=== PATIENT | male | born 1945 | race Caucasian/White ===

== ENCOUNTER 2017-01-27 08:09 | Observation (INO) | payer MEDICARE, BC ==
--- OUTSIDE RECORDS SUMMARY | 2017-01-27 08:11 | XMS | Clinical Summary ---
:1945 Author Organization [facility] Address [address] [place] [address] Phone Care Team Providers Name Role Phone , Primary Care Provider Unavailable Allergies Not on File Current Medications Not on file Active Problems Not on file Social History Tobacco Use Types Packs/Day Years Used Date Never Assessed Sex Assigned at Date Recorded Not on file Last Filed Vital Signs Not on file Plan of Treatment Not on file Results Not on filefrom Last 3 Months
[2017-01-27 09:12] LABS: #Eosinphils 0.3 thou/uL (0.0-0.7); #Lymphocytes 1.2 thou/uL (1.20-3.40); #Monocytes 0.5 thou/uL (0.11-0.59); #Neutrophils 5.6 thou/uL (1.40-6.50); %Basophils 0.5 % (0.0-1.0); %Eosinophils 4.4 % (0.0-10.0); %Lymphocytes 15.5 % (21.0-51.0); %Monocytes 6.1 % (0.0-10.0); Hematocrit 41.9 % (42.0-52.0); Mean Platelet Volume 7.6 fL (7.4-10.4); Red Blood Cell (RBC) Count 4.52 mill/uL (4.70-6.10); White Blood Cell (WBC) Count 7.6 thou/uL (4.8-10.8)
[2017-01-27 09:18] LABS: PTT 37.8 SEC (22.9-36.1)
[2017-01-27 09:37] LABS: ALT (SGPT) 19 U/L (8-55); AST (SGOT) 18 U/L (5-34); Alkaline Phosphatase 29 U/L (40-150); Anion Gap 12 mmol/L (10-20); BUN (Urea Nitrogen) 37 mg/dL (8.4-25.7); Bilirubin, Total 0.4 mg/dL (0.2-1.2); Calc. Creatinine Clearance 0 mL/min (70-130); Calcium 9.3 mg/dL (7.8-10.44); Carbon Dioxide 32 mmol/L (23-31); Chloride 104 mmol/L (98-107); Estimated GFR-MDRD 35; Globulin 2.9 g/dL (2.4-3.5); Protein, Total 6.6 g/dL (5.8-8.1)
--- NOTE | 2017-01-27 12:04 | HP ---
PRIMARY CARE PHYSICIAN: Debra Briones M.D. REASON FOR ADMISSION: Lower GI bleed. HISTORY OF PRESENT ILLNESS: A 71-year-old male who has underlying history of chronic atrial fibrillation on chronic anticoagulation therapy with warfarin, who came to emergency room for bright red blood per rectum which was started this morning around 6 a.m. The patient reports that it was pretty much large amount of blood in his toilet when he had restroom this morning. He did not have any pain. He did not have any fever. He does not have any antibiotic exposure. He waited for another hour and he had another large bowel movement which was only bright red blood per rectum. He was concerned about it and decided to come to the emergency room for evaluation. After coming to the emergency room, he had 2 episodes of rectal bleed. Patient reports that on , patient had colonoscopy, it was done by Dr. Drake. At the same time, the patient also had upper endoscopy. Patient was kept off on warfarin therapy 5 days prior to procedure and 3 days after procedure, he started back on warfarin on 01/14/2017 and subsequently patient also had a couple of days ago PT /INR checked which was 1.9. Patient reports that with last colonoscopy, they removed several polyps, one was which pretty much large, but all turned out to be negative for malignancy. This patient denies any abdominal pain. He denies any chest pain, palpitation, dizziness or shortness of breath. Today in the emergency room, his hemoglobin is 13.6, his INR is 1.9, and his creatinine 1.88 which are pretty much stable. At this point, we are admitting this patient in the hospital for further evaluation. REVIEW OF SYSTEMS: The following complete review of systems was negative, unless otherwise mentioned in the HPI or below: Constitutional: Weight loss or gain, ability to conduct usual activities. Skin: Rash, itching. Eyes: Double vision, pain. ENT/Mouth: Nose bleeding, neck stiffness, pain, tenderness. Cardiovascular: Palpitations, dyspnea on exertion, orthopnea. Respiratory: Shortness of breath, wheezing, cough, hemoptysis, fever or night sweats. Gastrointestinal: Poor appetite, abdominal pain, heartburn, nausea, vomiting, constipation, or diarrhea. Genitourinary: Urgency, frequency, dysuria, nocturia. Musculoskeletal: Pain, swelling. Neurologic/Psychiatric: Anxiety, depression. Allergy/Immunologic: Skin rash, bleeding tendency. Please see my HPI for pertinent positive and negative. All other review of systems reviewed and negative except as mentioned in the HPI. PAST MEDICAL HISTORY: Chronic atrial fibrillation, COPD, morbid obesity, diabetes type 2, hypertension, coronary artery disease, gout, dyslipidemia. PAST SURGICAL HISTORY: Appendicectomy, tonsillectomy, pacemaker placed in 2013 , cataract surgery. I\T\D was performed for abscess in the neck. PAST PSYCHIATRIC HISTORY: Reviewed and negative. ALLERGIES: The patient is allergic to PENICILLIN. FAMILY HISTORY: Both parents . Mom of massive stroke by age of 89. Father had history of bone cancer. Father had exposure to benzene and he by age of 56. SOCIAL HISTORY: Patient is . He quit smoking in 1988. He denies any alcohol or other illicit drug abuse. CURRENT HOME MEDICATIONS: Allopurinol 300 mg p.o. daily, amiodarone 100 mg p.o. daily, aspirin 81 mg p.o. daily, Symbicort 2 puffs inhalation b.i.d., Coreg 25 mg p.o. b.i.d., Celexa 10 mg p.o. daily, Lasix 40 mg p.o. daily, Neurontin 100 mg p.o. at bedtime, Amaryl 1 mg p.o. b.i.d., glucosamine chondroitin sulfate 2 tablets p.o. daily, Claritin 10 mg p.o. daily, losartan with hydrochlorothiazide 100/25 one tablet p.o. daily, lovastatin 20 mg p.o. daily, multivitamin 1 capsule p.o. daily, warfarin 2 mg daily, Ambien 5 mg p.o. at bedtime, metformin 1000 mg p.o. b.i.d. EMERGENCY ROOM COURSE: Patient has received 1 liter of IV fluid. PHYSICAL EXAMINATION: VITAL SIGNS: On arrival, blood pressure 131/67, pulse 60, respiratory rate 14, temperature 97.5, saturation 89% on room air, weight not measured yet. GENERAL: Patient is currently alert, awake, no obvious acute distress. HEAD: Normocephalic, atraumatic. EYES: Pupils round, reactive to light. Extraocular muscles intact. ENT: Oropharynx within normal limits. Moist mucous membranes. No oral lesions. No pharyngeal erythema, no exudate. NECK: Supple. Range of motion is normal. No meningeal signs of irritation. LUNGS: Clear to auscultation without any rhonchi or rales. CARDIAC: S1, S2 regular. No murmur, no gallop, no rub. ABDOMEN: Soft, obesity present. Bowel sounds present, nontender, nondistended. No organomegaly, no mass, no suprapubic tenderness. No peritoneal signs. No rebound. BACK: Examination unremarkable, no CVA tenderness. EXTREMITIES: Upper extremity passive movements of all joints are normal. Lower extremity, no edema. Good peripheral pulsation. SKIN: No skin rash. HEMATOLOGICAL SYSTEM: No lymphadenopathy. PSYCHIATRIC: Normal affect. NEUROLOGIC: The patient is alert, oriented x3. Cranial nerves II-XII intact. Motor and sensation within normal limits. Speech normal. No focal neurological deficit noted. SIGNIFICANT LABORATORY DATA AND IMAGIN. CBC: WBC 7.6, hemoglobin 13.6, platelet 247. INR 1.9. 2. BMP: Sodium 143, potassium 4.8, chloride 104, carbon dioxide 32, anion gap 12, BUN 37, creatinine 1.88, glucose 159, calcium 9.3. 3. LFT: AST 18, ALT 19, alkaline phosphatase 29, albumin 3.7. 4. surveillance monitor showing currently sinus rhythm. ASSESSMENT AND PLAN/IMPRESSION: 1. Lower gastrointestinal bleed. This patient has bright red blood per rectum. This patient already had a colonoscopy done recently and several polyps were removed and his polys pathology report is tubulovillous adenoma. One polyp was hyperplastic without any malignancy. At this point, the patient has painless lower gastrointestinal bleed and most likely it is diverticular bleed versus polyp bleed. At this point, the patient is on anticoagulation therapy with warfarin and that is why we will hold on aspirin and warfarin therapy. We will keep him on clear liquid diet and we will consult director of vocational guidance for further evaluation. Today, we will check H\T\H every 4 hourly x3 and we will repeat CBC tomorrow. If he is getting symptomatic or if his hemoglobin drops below 8, then we will consider transfusion. 2. Anemia due to acute blood loss. Currently, hemoglobin is 13.6, but we are expecting that if his hemoglobin may drop to little bit and if hemoglobin is less than 8, then we will consider blood transfusion. We will monitor H\T\H here in the hospital today and tomorrow. 3. Paroxysmal atrial fibrillation, chronic, with currently sinus rhythm. The patient is on chronic anticoagulation therapy. His INR is 1.9. As mentioned above, patient has active bleeding and that is why we will hold on warfarin therapy. Patient will have his home medication for atrial fibrillation with amiodarone 100 mg p.o. daily. 4. Diabetes type 2. We will continue with insulin as per sliding scale protocol. Diabetic diet will be given when patient able to take p.o. intake. At this point, currently on a clear liquid diet. We will also resume patient's home medications. 5. Hypertension. Currently, the patient's blood pressure is reasonable. We will continue with the patient's blood pressure medication while in hospital. 6. Chronic obstructive pulmonary disease. DuoNeb therapy every 6 hourly p.r.n. and Dulera 2 puffs inhalation b.i.d. 7. Mild hypoxia on admission. We will monitor oxygen saturation while in hospital periodically to assess any need of home oxygen therapy. 8. Dyslipidemia. We will resume patient's home medication while in hospital. 9. Obesity. Dietary education given, weight loss education given. Healthy lifestyle measures discussed with the patient. 10. Chronic kidney disease stage 3. Looking at his old record, patient's renal function is stable enough to his baseline. We will avoid nephrotoxic agent. 11. Coronary artery disease. Patient will have beta hugh and statin therapy. We will hold on aspirin therapy because of bleeding. 12. Deep venous thrombosis prophylaxis. Sequential compression device boots. No warfarin therapy because of bleeding. 13. Gastrointestinal prophylaxis. Patient will have Protonix 40 mg IV daily. 14. Code status: The patient is FULL CODE. The patient's is surrogate decision maker. Disposition plan based on clinical course. We are expecting patient's stay in hospital 1-2 midnights. Plan of care discussed with the patient's family member. ADDITIONAL INFORMATION: This patient, if he has spontaneous stopping of bright red blood per rectum, then we will advance his diet till tomorrow and if he does not have any further bleeding in next 24-48 hours, then we will consider discharging him home. If this patient has ongoing rectal bleeding, then we will consider doing a nuclear medicine RBC tagged scan and GI may decide about doing colonoscopy or colonoscopy if needed. Plan of care discussed with the patient's family member at bedside in the emergency room. ENZO
[2017-01-27] MEDS ORDERED: Acetaminophen 325 MG TAB PO PRN ×2 (12:28→12:31)
[2017-01-27] MEDS ORDERED: Ondansetron HCl/PF 4 MG/2 ML Vial IVP PRN ×2 (12:28→12:31)
[2017-01-27] MEDS ORDERED: Ondansetron ODT 4 MG TAB SL PRN (12:28)
[2017-01-27] MEDS ORDERED: Senokot 8.6 MG TAB PO PRN (12:31)
[2017-01-27] MEDS ORDERED: Milk Of Magnesia 30 ML UDCUP PO PRN (12:31)
[2017-01-27] MEDS ORDERED: Dextrose 5% in Water 1,000 ML IV PRN (12:31)
[2017-01-27] MEDS ORDERED: Mag-Al 1200 mg/1200 mg/30 ML UDCUP PO PRN (12:31)
[2017-01-27] MEDS ORDERED: Ondansetron ODT 4 MG TAB PO PRN (12:31)
[2017-01-27] MEDS ORDERED: Loratadine 10 MG TAB PO PRN (12:31)
[2017-01-27] MEDS ORDERED: Loperamide HCl 2 MG CAP PO PRN (12:31)
[2017-01-27] MEDS ORDERED: Dextrose 50% Abboject 50 ML SYRINGE SLOW IVP PRN (12:31)
[2017-01-27] MEDS ORDERED: HumaLOG 300 UNITS/3 ML VIAL SC PRN ×2 (12:31)
[2017-01-27] MEDS ORDERED: HYDROcodone/Acetaminophen 5/325 mg Tablet PO PRN (12:31)
[2017-01-27] MEDS ORDERED: Nitroglycerin 0.4 MG TAB (25 Tab Bottle) SL PRN (12:31)
[2017-01-27] MEDS ORDERED: Diabetic Tussin 200 MG/10 ML UDCUP PO PRN (12:31)
[2017-01-27] MEDS ORDERED: Zolpidem Tartrate 5 MG TAB PO PRN (12:31)
[2017-01-27] MEDS ORDERED: Eucerin (Mineral Oil/Petrolatum,White) 30 gm Jar TOP PRN (12:31)
[2017-01-27] MEDS ORDERED: Sodium Chloride 0.65% Nasal 44 ML BOT EA NARE PRN (12:31)
[2017-01-27 12:32] VITALS: BMI 37.5
[2017-01-27] MEDS ORDERED: Phytonadione 10 MG/ML AMP PO SCH (15:45)
[2017-01-27] MEDS ORDERED: GoLYTELY 4,000 ml Bottle PO SCH (18:00)
[2017-01-27 18:46] LABS: Hematocrit 36.4 % (42.0-52.0)
[2017-01-27] MEDS: Mometasone/Formoterol 120 PUFF INHALER INH SCH (19:03)
--- NOTE | 2017-01-27 20:26 | CON ---
DATE OF CONSULTATION: 01/27/2017 HISTORY OF PRESENT ILLNESS: Patient is a 71-year-old male who underwent a colonoscopy on 01/11/2017, in which multiple polyps were found. Histopathology from the procedure showed biopsies of the antrum and body of stomach showing no Helicobacter pylori with some mild chronic inactive gas tritis. Ascending colon polyps showed 4 tubular adenomas. A transverse colon polyp showed a tubulo villous adenoma. Rectal polyps showed fragments of tubular adenoma and 2 fragments a hyperplastic p olyp. He was doing well. He resumed his Coumadin approximately 3 days after the procedure and was doing well up until today when he woke up he had 5 large bloody bowel movements. He denies any abdo teri pain, nausea, vomiting or recent other GI complaints. PAST MEDICAL HISTORY: Includes atrial fibrillation on Coumadin, chronic obstructive pulmonary disea se, diabetes mellitus, hypertension, coronary artery disease, gout and hyperlipidemia. PAST SURGICAL HISTORY: Includes appendectomy, tonsillectomy, pacemaker placement and cataract surge ry. ALLERGIES: PENICILLIN. SOCIAL HISTORY: He is a former smoker and does not drink alcohol. HOME MEDICATIONS: Include glipizide 2.5 mg 1 p.o. q. day, multivitamin 1 p.o. q. day, Levoxyl 100 m cg p.o. q. day, Lantus insulin 12 units subq at bedtime, Triglide 160 mg p.o. q. day, Symbicort 2 pu ffs b.i.d., warfarin 2 mg on 4 days a week and 1 mg on 3 days a week, Lasix 40 mg p.o. q. day, amiod arone 100 mg p.o. q. day, Neurontin 100 mg p.o. b.i.d., Coreg 12.5 mg p.o. b.i.d., lovastatin 20 mg p.o. q.p.m., Loratadine 10 mg p.o. q. day, aspirin 81 mg p.o. q. day, citalopram 10 mg p.o. daily an d allopurinol 100 mg p.o. q. day. REVIEW OF SYSTEMS: Constitutional: No fever or chills. No weight loss. Eyes: No blurred vision or double vision. ENT: No sore throat or earaches. Cardiovascular: No chest pain or palpitations . Pulmonary: No shortness of breath, cough or wheezing. Gastrointestinal: See above. Genitourin asha: No hematuria or dysuria. Musculoskeletal: No joint pain or muscle weakness. Skin: No rashe s. LABORATORY DATA: Shows a hemoglobin of 13.6 and hematocrit of 41.2. PT is 22.0 with an INR of 1.9. Chemistries showed a BUN of 37, creatinine of 1.88 and glucose of 159. ASSESSMENT: 1. Gastrointestinal bleed - It is a little unusual for a post-polypectomy hemorrhage to occur more than 2 weeks post-polypectomy; however, the patient is on Coumadin and this may have caused the blee ding what may have smaller ulcer. 2. Atrial fibrillation, on Coumadin. 3. Anemia secondary to gastrointestinal blood loss. 4. Diabetes mellitus. RECOMMENDATIONS: 1. Colonoscopy in a.m. 2. Vitamin K to correct coagulopathy.
[2017-01-28 00:03] LABS: Hematocrit 34.5 % (42.0-52.0)
[2017-01-28] MEDS: Sodium Chloride 0.9% 1,000 ML IV SCH (03:42)
[2017-01-28 05:41] LABS: #Eosinphils 0.2 thou/uL (0.0-0.7); #Lymphocytes 1.3 thou/uL (1.20-3.40); #Monocytes 0.6 thou/uL (0.11-0.59); #Neutrophils 6.4 thou/uL (1.40-6.50); %Basophils 0.3 % (0.0-1.0); %Eosinophils 2.5 % (0.0-10.0); %Lymphocytes 14.9 % (21.0-51.0); %Monocytes 6.6 % (0.0-10.0); Hematocrit 29.3 % (42.0-52.0); Mean Platelet Volume 8.1 fL (7.4-10.4); Red Blood Cell (RBC) Count 3.17 mill/uL (4.70-6.10); White Blood Cell (WBC) Count 8.5 thou/uL (4.8-10.8)
[2017-01-28 05:54] LABS: Anion Gap 12 mmol/L (10-20); BUN (Urea Nitrogen) 39 mg/dL (8.4-25.7); Calc. Creatinine Clearance 54 mL/min (70-130); Calcium 8.1 mg/dL (7.8-10.44); Carbon Dioxide 27 mmol/L (23-31); Chloride 106 mmol/L (98-107); Estimated GFR-MDRD 31
[2017-01-28 06:32] LABS: Prothrombin Time 21.6 SEC (12.0-14.7)
[2017-01-28] MEDS ORDERED: Phytonadione 10 MG/ML AMP SC SCH (08:00)
[2017-01-28] MEDS: Mometasone/Formoterol 120 PUFF INHALER INH SCH ×2 (08:00→19:31)
[2017-01-28 08:16] LABS: Hematocrit 28.6 % (42.0-52.0)
--- NOTE | 2017-01-28 09:23 | PDOC.PN ---
- Subjective Encounter Start Date: 01/28/17 Encounter Start Time: 08:10 -: old records requested/rev this morning pt still had BRBPR, pt feels weak, no chest pain, family bedside - Objective Resuscitation Status: Resuscitation Status FULL:Full Resuscitation MAR Reviewed: Yes Vital Signs & Weight: Vital Signs (12 hours) Temp Pulse Resp BP Pulse Ox 01/28/17 08:05 93 L 01/28/17 08:00 71 28 H 93 L 01/28/17 07:23 98.1 F 85 22 H 01/28/17 07:11 98.1 F 85 22 H 138/58 L 92 L 01/28/17 03:25 98.6 F 78 22 H 139/60 94 L 01/27/17 23:16 98.1 F 60 18 135/92 H 94 L Weight Weight 269 lb 3.2 oz I&O: 01/27/17 01/28/17 01/29/17 06:59 06:59 06:59 Intake Total 4700 Balance 4700 Result Diagrams: 01/28/17 08:11 01/28/17 05:04 Additional Labs: Accuchecks 01/27/17 01/27/17 01/27/17 20:41 16:31 12:54 POC Glucose 101 100 114 H Phys Exam - Physical Examination Constitutional: NAD HEENT: PERRLA, moist MMs, sclera anicteric Neck: no JVD, supple Respiratory: no wheezing, no rales, no rhonchi Cardiovascular: RRR, no significant murmur, no rub Gastrointestinal: soft, non-tender, no distention, positive bowel sounds Musculoskeletal: no edema, pulses present Neurological: non-focal, normal sensation, moves all 4 limbs Lymphatic: no nodes Psychiatric: normal affect, A&O x 3 Skin: no rash, normal turgor Dx/Plan (1) Anemia due to acute blood loss Code(s): D62 - ACUTE POSTHEMORRHAGIC ANEMIA Status: Acute (2) Lower GI bleed Code(s): K92.2 - GASTROINTESTINAL HEMORRHAGE, UNSPECIFIED Status: Acute (3) Asthma Code(s): J45.909 - UNSPECIFIED ASTHMA, UNCOMPLICATED Status: Chronic (4) Atrial fibrillation Code(s): I48.91 - UNSPECIFIED ATRIAL FIBRILLATION Status: Chronic (5) CKD (chronic kidney disease) stage 3, GFR 30-59 ml/min Code(s): N18.3 - CHRONIC KIDNEY DISEASE, STAGE 3 (MODERATE) Status: Chronic (6) Depression Code(s): F32.9 - MAJOR DEPRESSIVE DISORDER, SINGLE EPISODE, UNSPECIFIED Status : Chronic (7) Dyslipidemia Code(s): E78.5 - HYPERLIPIDEMIA, UNSPECIFIED Status: Chronic (8) Gout Code(s): M10.9 - GOUT, UNSPECIFIED Status: Chronic (9) Hypertension Code(s): I10 - ESSENTIAL (PRIMARY) HYPERTENSION Status: Chronic (10) Obesity (BMI 30-39.9) Code(s): E66.9 - OBESITY, UNSPECIFIED Status: Chronic - Plan cont current plan of care, plan discussed w/ family * today plan for colonoscopy * will give FFP to reverse warfarin effect * medication reviewed as below * symptomatic treatment * will monitor today and repeat CBC, BMP tomorrow. Review of Systems - Review of Systems Constitutional: Weakness. negative: Fever, Chills, Sweats, Malaise, Other Eyes: negative: Pain, Vision Change, Conjunctivae Inflammation, Eyelid Inflammation, Redness, Other ENT: negative: Ear Pain, Ear Discharge, Nose Pain, Nose Discharge, Nose Congestion, Mouth Pain, Mouth Swelling, Throat Pain, Throat Swelling, Other Respiratory: negative: Cough, Dry, Shortness of Breath, Hemoptysis, SOB with Excertion, Pleuritic Pain, Sputum, Wheezing Cardiovascular: negative: Chest Pain, Palpitations, Orthopnea, Paroxysmal Noc. Dyspnea, Edema, Light Headedness, Other Gastrointestinal: Hematochezia. negative: Nausea, Vomiting, Abdominal Pain, Diarrhea, Constipation, Melena, Other Genitourinary: negative: Dysuria, Frequency, Incontinence, Hematuria, Retention , Other Musculoskeletal: negative: Neck Pain, Shoulder Pain, Arm Pain, Back Pain, Hand Pain, Leg Pain, Foot Pain, Other Skin: negative: Rash, Lesions, James, Bruising, Other - Medications/Allergies Allergies/Adverse Reactions: Allergies Allergy/AdvReac Type Severity Reaction Status Date / Time Penicillins Allergy Verified 01/27/17 12:48 Medications: Current Medications Acetaminophen (Tylenol) 650 mg PO Q4H PRN PRN Reason: Headache/Fever or Pain Hydrocodone Bitart/Acetaminophen ([place] 5/325) 1 tab PO Q4H PRN PRN Reason: Moderate Pain (4-6) Al Hydroxide/Mg Hydroxide (Maalox) 30 ml PO Q6H PRN PRN Reason: Heartburn or Indigestion Albuterol/Ipratropium (Duoneb) 3 ml NEB [id number] PRN PRN Reason: SOB &/or Wheezing Dextrose/Water (Dextrose 50%) 25 gm SLOW IVP PRN PRN PRN Reason: Hypoglycemia Glucagon (Glucagon) 1 mg IM PRN PRN PRN Reason: Hypoglycemia Guaifenesin (Robitussin Sf) 200 mg PO Q4H PRN PRN Reason: Cough Hydralazine HCl (Apresoline) 10 mg SLOW IVP Q4H PRN PRN Reason: Systolic BP > 180 Dextrose/Water (D5w) 1,000 mls @ 0 mls/hr IV .Q0M PRN; As Directed PRN Reason: Hypoglycemia Sodium Chloride (Normal Saline 0.9%) 1,000 mls @ 50 mls/hr IV .Q20H [facility] Last Admin: 01/28/17 03:42 Dose: 1,000 mls Insulin Human Lispro (Humalog) 0 units SC .MODERATE SLIDING SC PRN PRN Reason: Moderate Correctional Scale Insulin Human Lispro (Humalog) 0 units SC .BEDTIME SLIDING SC PRN PRN Reason: Bedtime Correctional Scale Loperamide HCl (Imodium) 2 mg PO PRN PRN PRN Reason: Diarrhea/Loose Stools Loratadine (Claritin) 10 mg PO DAILYPRN PRN PRN Reason: Sinus Symptoms Magnesium Hydroxide (Milk Of Magnesium) 30 ml PO DAILYPRN PRN PRN Reason: Constipation Mineral Oil/White Petrolatum (Eucerin Cream) 0 gm TOP BIDPRN PRN PRN Reason: Dry Skin Mometasone Furoate/Formoterol Fumar (Dulera 200 Mcg/5 Mcg Inhaler) 2 puff INH BID-RT [facility] Last Admin: 01/28/17 08:00 Dose: 2 puff Nitroglycerin (Nitrostat) 0.4 mg SL Q5MIN PRN PRN Reason: Chest Pain Ondansetron HCl (Zofran Odt) 4 mg PO Q6H PRN PRN Reason: Nausea/Vomiting Ondansetron HCl (Zofran) 4 mg IVP Q6H PRN PRN Reason: Nausea/Vomiting Senna (Senokot) 2 tab PO HSPRN PRN PRN Reason: Constipation Sodium Chloride ([place] Nasal [place] 0.65%) 0 ml EA NARE QIDPRN PRN PRN Reason: Nasal Congestion Sodium Chloride (Flush - Normal Saline) 10 ml IVF Q12HR [facility] Last Admin: 01/28/17 07:40 Dose: Not Given Sodium Chloride (Flush - Normal Saline) 10 ml IVF PRN PRN PRN Reason: Saline Flush Last Admin: 01/28/17 03:42 Dose: 10 ml Zolpidem Tartrate (Ambien) 5 mg PO HSPRN PRN PRN Reason: Insomnia
[2017-01-28] MEDS ORDERED: ePHEDrine/0.9% NaCl/PF SYRINGE 50 mg/10 ml ONE (10:25)
[2017-01-28] MEDS ORDERED: Lidocaine 1% PF 5 ML VIAL ONE (10:25)
[2017-01-28] MEDS ORDERED: Ondansetron HCl/PF 4 MG/2 ML Vial IVP PRN (10:39)
[2017-01-28] MEDS ORDERED: Promethazine HCl 25 MG/ML VIAL SLOW IVP PRN (10:39)
--- NOTE | 2017-01-28 11:15 | OP ---
PREOPERATIVE DIAGNOSIS: Gastrointestinal bleed. DESCRIPTION OF THE PROCEDURE: After informed consent was obtained, the patient placed in the left l ateral decubitus position. Anesthesia was administered per the Anesthesia Department. Forward-view ing endoscope was inserted into the rectum after perianal inspection and rectal exam were normal. T he prep was suboptimal secondary to small blood, but most of this was washed free. In the transvers e colon, a visible vessel was noted and this was ablated with a 10-Portuguese BICAP electrocautery. A s suleman clip was attempted to be placed, but was unsuccessful. The remainder of the colon was normal. ASSESSMENT: 1. Colon ulcer with visible vessel - source of the patient's bleeding. 2. Status post control of hemorrhage. RECOMMENDATIONS: 1. Monitor H\T\H. 2. Resume diet. 3. Continue to hold Coumadin.
[2017-01-29] MEDS: Sodium Chloride 0.9% 1,000 ML IV SCH (03:54)
[2017-01-29 05:16] LABS: #Eosinphils 0.2 thou/uL (0.0-0.7); #Lymphocytes 1.3 thou/uL (1.20-3.40); #Monocytes 0.5 thou/uL (0.11-0.59); #Neutrophils 4.6 thou/uL (1.40-6.50); %Basophils 0.3 % (0.0-1.0); %Eosinophils 3.6 % (0.0-10.0); %Lymphocytes 19.8 % (21.0-51.0); %Monocytes 6.9 % (0.0-10.0); Hematocrit 22.3 % (42.0-52.0); Red Blood Cell (RBC) Count 2.43 mill/uL (4.70-6.10); White Blood Cell (WBC) Count 6.6 thou/uL (4.8-10.8)
[2017-01-29 05:52] LABS: Prothrombin Time 15.6 SEC (12.0-14.7)
[2017-01-29 05:58] LABS: Anion Gap 9 mmol/L (10-20); BUN (Urea Nitrogen) 30 mg/dL (8.4-25.7); Calc. Creatinine Clearance 60 mL/min (70-130); Calcium 7.9 mg/dL (7.8-10.44); Carbon Dioxide 28 mmol/L (23-31); Chloride 108 mmol/L (98-107); Estimated GFR-MDRD 35
[2017-01-29 07:45] VITALS: BP 156/63; TEMP 97.9
[2017-01-29] MEDS: Mometasone/Formoterol 120 PUFF INHALER INH SCH (08:19)
--- NOTE | 2017-01-29 10:13 | PDOC.PN ---
- Subjective Encounter Start Date: 01/29/17 Encounter Start Time: 07:10 Patient seen and examined. No new complaints. No overnight events - Objective Resuscitation Status: Resuscitation Status FULL:Full Resuscitation MAR Reviewed: Yes Vital Signs & Weight: Vital Signs (12 hours) Temp Pulse Resp BP BP Pulse Ox 01/29/17 08:28 97.9 F 67 12 01/29/17 08:19 67 12 01/29/17 07:18 97.9 F 73 16 156/63 H 92 L 01/29/17 03:41 98.5 F 72 16 172/64 H 96 01/28/17 23:17 97.7 F 70 12 147/58 H 96 Weight Weight 269 lb 3.2 oz I&O: 01/28/17 01/29/17 01/30/17 06:59 06:59 06:59 Intake Total 4700 1409 Balance 4700 1409 Result Diagrams: 01/29/17 04:45 01/29/17 04:44 Additional Labs: Accuchecks 01/29/17 01/28/17 01/28/17 06:13 21:01 16:54 POC Glucose 183 H 165 H 143 H 01/28/17 11:37 POC Glucose 138 H Phys Exam - Physical Examination Constitutional: NAD HEENT: PERRLA, moist MMs, sclera anicteric Neck: no JVD, supple Respiratory: no wheezing, no rales, no rhonchi Cardiovascular: RRR, no significant murmur, no rub Gastrointestinal: soft, non-tender, no distention, positive bowel sounds Musculoskeletal: no edema, pulses present Neurological: non-focal, normal sensation, moves all 4 limbs Psychiatric: normal affect, A&O x 3 Skin: no rash, normal turgor Dx/Plan (1) Anemia due to acute blood loss Code(s): D62 - ACUTE POSTHEMORRHAGIC ANEMIA Status: Acute (2) Lower GI bleed Code(s): K92.2 - GASTROINTESTINAL HEMORRHAGE, UNSPECIFIED Status: Acute (3) Asthma Code(s): J45.909 - UNSPECIFIED ASTHMA, UNCOMPLICATED Status: Chronic (4) Atrial fibrillation Code(s): I48.91 - UNSPECIFIED ATRIAL FIBRILLATION Status: Chronic (5) CKD (chronic kidney disease) stage 3, GFR 30-59 ml/min Code(s): N18.3 - CHRONIC KIDNEY DISEASE, STAGE 3 (MODERATE) Status: Chronic (6) Depression Code(s): F32.9 - MAJOR DEPRESSIVE DISORDER, SINGLE EPISODE, UNSPECIFIED Status : Chronic (7) Dyslipidemia Code(s): E78.5 - HYPERLIPIDEMIA, UNSPECIFIED Status: Chronic (8) Gout Code(s): M10.9 - GOUT, UNSPECIFIED Status: Chronic (9) Hypertension Code(s): I10 - ESSENTIAL (PRIMARY) HYPERTENSION Status: Chronic (10) Obesity (BMI 30-39.9) Code(s): E66.9 - OBESITY, UNSPECIFIED Status: Chronic - Plan cont current plan of care * iron on discharge * no more bleeding per pt * pt is not interested in transfusion * hold warfarin until cleared by GI * medication reviewed as below * symptomatic treatment. . Review of Systems - Review of Systems ENT: negative: Ear Pain, Ear Discharge, Nose Pain, Nose Discharge, Nose Congestion, Mouth Pain, Mouth Swelling, Throat Pain, Throat Swelling, Other Respiratory: negative: Cough, Dry, Shortness of Breath, Hemoptysis, SOB with Excertion, Pleuritic Pain, Sputum, Wheezing Cardiovascular: negative: Chest Pain, Palpitations, Orthopnea, Paroxysmal Noc. Dyspnea, Edema, Light Headedness, Other Gastrointestinal: negative: Nausea, Vomiting, Abdominal Pain, Diarrhea, Constipation, Melena, Hematochezia, Other Genitourinary: negative: Dysuria, Frequency, Incontinence, Hematuria, Retention , Other Musculoskeletal: negative: Neck Pain, Shoulder Pain, Arm Pain, Back Pain, Hand Pain, Leg Pain, Foot Pain, Other - Medications/Allergies Allergies/Adverse Reactions: Allergies Allergy/AdvReac Type Severity Reaction Status Date / Time Penicillins Allergy Verified 01/27/17 12:48 Medications: Current Medications Acetaminophen (Tylenol) 650 mg PO Q4H PRN PRN Reason: Headache/Fever or Pain Hydrocodone Bitart/Acetaminophen ([place] 5/325) 1 tab PO Q4H PRN PRN Reason: Moderate Pain (4-6) Al Hydroxide/Mg Hydroxide (Maalox) 30 ml PO Q6H PRN PRN Reason: Heartburn or Indigestion Albuterol/Ipratropium (Duoneb) 3 ml NEB [id number] PRN PRN Reason: SOB &/or Wheezing Dextrose/Water (Dextrose 50%) 25 gm SLOW IVP PRN PRN PRN Reason: Hypoglycemia Glucagon (Glucagon) 1 mg IM PRN PRN PRN Reason: Hypoglycemia Guaifenesin (Robitussin Sf) 200 mg PO Q4H PRN PRN Reason: Cough Hydralazine HCl (Apresoline) 10 mg SLOW IVP Q4H PRN PRN Reason: Systolic BP > 180 Dextrose/Water (D5w) 1,000 mls @ 0 mls/hr IV .Q0M PRN; As Directed PRN Reason: Hypoglycemia Sodium Chloride (Normal Saline 0.9%) 1,000 mls @ 50 mls/hr IV .Q20H [facility] Last Admin: 01/29/17 03:54 Dose: 1,000 mls Insulin Human Lispro (Humalog) 0 units SC .MODERATE SLIDING SC PRN PRN Reason: Moderate Correctional Scale Last Admin: 01/29/17 06:27 Dose: 2 unit Insulin Human Lispro (Humalog) 0 units SC .BEDTIME SLIDING SC PRN PRN Reason: Bedtime Correctional Scale Loperamide HCl (Imodium) 2 mg PO PRN PRN PRN Reason: Diarrhea/Loose Stools Loratadine (Claritin) 10 mg PO DAILYPRN PRN PRN Reason: Sinus Symptoms Magnesium Hydroxide (Milk Of Magnesium) 30 ml PO DAILYPRN PRN PRN Reason: Constipation Mineral Oil/White Petrolatum (Eucerin Cream) 0 gm TOP BIDPRN PRN PRN Reason: Dry Skin Mometasone Furoate/Formoterol Fumar (Dulera 200 Mcg/5 Mcg Inhaler) 2 puff INH BID-RT [facility] Last Admin: 01/29/17 08:19 Dose: 2 puff Nitroglycerin (Nitrostat) 0.4 mg SL Q5MIN PRN PRN Reason: Chest Pain Ondansetron HCl (Zofran Odt) 4 mg PO Q6H PRN PRN Reason: Nausea/Vomiting Ondansetron HCl (Zofran) 4 mg IVP Q6H PRN PRN Reason: Nausea/Vomiting Senna (Senokot) 2 tab PO HSPRN PRN PRN Reason: Constipation Sodium Chloride ([place] Nasal [place] 0.65%) 0 ml EA NARE QIDPRN PRN PRN Reason: Nasal Congestion Sodium Chloride (Flush - Normal Saline) 10 ml IVF Q12HR [facility] Last Admin: 01/29/17 08:28 Dose: Not Given Sodium Chloride (Flush - Normal Saline) 10 ml IVF PRN PRN PRN Reason: Saline Flush Last Admin: 01/28/17 03:42 Dose: 10 ml Zolpidem Tartrate (Ambien) 5 mg PO HSPRN PRN PRN Reason: Insomnia
--- NOTE | 2017-01-29 14:00 | PRG ---
DATE OF SERVICE: 01/29/2017 SUBJECTIVE: The patient is feeling good. He has had no bowel movements since his colonoscopy. He has not had any vomiting. He is eating well. He is ready to go home. OBJECTIVE: VITAL SIGNS: Temperature 97.9, pulse 67, respiratory rate 12, and blood pressure 156/63. CHEST: Clear. CARDIOVASCULAR: Irregular rate and rhythm. ABDOMEN: Soft, nontender, without organomegaly or masses. LABORATORY DATA: Shows PT of 15.6 with an INR of 1.2, hemoglobin 7.4, and hematocrit 22.3. Clinical Project Leader gisele show creatinine 1.89, glucose 183. ASSESSMENT: 1. Post-polypectomy hemorrhage. 2. Anemia secondary to gastrointestinal blood loss - decrease in hemoglobin and hematocrit this mor tram, probably reflects prior bleeding, does not appear that he is acutely bleeding. RECOMMENDATIONS: 1. Iron. 2. Follow up with me in 4-5 days with a blood count before. 3. Return if any symptoms recur.
--- NOTE | 2017-01-29 15:21 | DIS ---
DATE OF ADMISSION: 01/27/2017 DATE OF DISCHARGE: 01/29/2017 PRIMARY CARE PHYSICIAN: Debra Briones M.D. DISCHARGE DISPOSITION: Home. PRIMARY DISCHARGE DIAGNOSES: 1. Lower gastrointestinal bleed. 2. Anemia due to acute blood loss. 3. Colon ulcer with visible vessels, status post cauterization. SECONDARY DISCHARGE DIAGNOSES: Obesity with body mass index 37, hypertension, gout, dyslipidemia, a sthma, paroxysmal atrial fibrillation, chronic kidney disease stage 3, depression, dyslipidemia. PRIMARY PROCEDURE/OPERATION: Colonoscopy found with colon ulcer and visible vessel which was cauter ized by Dr. Drake. RADIOLOGICAL INVESTIGATION: None. SIGNIFICANT LABORATORY DATA: Hemoglobin 7.4. INR 1.2, creatinine 1.89. DISCHARGE MEDICATIONS: Patient is advised to hold aspirin and warfarin until cleared by GI. That c an be restarted after 3-5 days. Allopurinol 100 mg p.o. daily, amiodarone 100 mg p.o. daily, Symbic ort 2 puffs inhalation b.i.d., Coreg 12.5 mg p.o. b.i.d., Celexa 10 mg p.o. daily, Tricor 160 mg p.o . daily, ferrous sulfate 325 mg p.o. b.i.d., fish oil 2 capsules daily, Lasix 40 mg p.o. daily, bridget pentin 100 mg b.i.d., glucosamine chondroitin sulfate 2 tablets p.o. daily, Lantus 12 units at bedti me, ketoconazole topical application as directed, Synthroid 100 mcg p.o. daily, lovastatin 20 mg p.o . at bedtime, multivitamin 1 tablet p.o. daily, and glipizide ER 2.5 mg p.o. daily. CONTRAINDICATIONS: None. CODE STATUS: FULL CODE. INPATIENT APPLICATIONS ARCHITECT: Dr. Drake was consulted while in hospital. ALLERGIES: PENICILLIN. TEST RESULTS PENDING ON DISCHARGE: None. DISCHARGE PLAN: Post hospital, the patient will follow with primary care physician and Dr. Drake as instructed. HOSPITAL COURSE: A 71-year-old male with above-mentioned medical problem who was admitted by me. Madisyn alejo see my HPI for further details. The patient was admitted as observation status on 01/27/2017. Patient came to the ER with lower GI bleed. He was having bright red blood per rectum. His initi al hemoglobin was 13.6 and by the time of discharge, his hemoglobin was 7.4. He has several times r ectal bleeding. During this admission, we treated him with IV fluid and Dr. Drake was consulted. He did a colonoscopy. This patient was found with colonic ulcer with visible vessel which was cauteri zed and bleeding was stopped. This patient had previously colonoscopy and polyp was removed and that is why he had ulcer and that was bleeding. He had blood loss anemia, but he did not require any blood transfusion. His hemoglob in is 7.4 by the time of discharge. We started iron supplementation. On discharge, we advised him to hold warfarin and aspirin until cleared by GI. The patient was not interested in blood transfusion. Patient was also given IV fluids and his renal function was up to his baseline. The patient is seen and examined at bedside today. Please see my progress note from today for further details.
== END 2017-01-29 11:27 | disposition home or self-care (01) ==
LOC: ERS 08:09 → 2SW 10:34
PROVIDERS: ADMIT Internal Medicine; ATTEND Internal Medicine
PROC: 0W3P8ZZ Control Bleeding in Gastrointestinal Tract, Via Natural or Artificial Opening Endoscopic (ICD-10-PCS; principal; 2017-01-27)
DX: K92.2 Gastrointestinal hemorrhage, unspecified (principal); K63.3 Ulcer of intestine; I48.2 Chronic atrial fibrillation; J44.9 Chronic obstructive pulmonary disease, unspecified; M10.9 Gout, unspecified; I12.9 Hypertensive chronic kidney disease with stage 1 through stage 4 chronic kidney disease, or unspecified chronic kidney disease; E11.22 Type 2 diabetes mellitus with diabetic chronic kidney disease; N18.3 Chronic kidney disease, stage 3 (moderate); D50.0 Iron deficiency anemia secondary to blood loss (chronic); J45.909 Unspecified asthma, uncomplicated; I25.10 Atherosclerotic heart disease of native coronary artery without angina pectoris; E78.5 Hyperlipidemia, unspecified; E66.01 Morbid (severe) obesity due to excess calories; Z68.37 Body mass index [BMI] 37.0-37.9, adult; Z88.0 Allergy status to penicillin; Z79.899 Other long term (current) drug therapy; Z79.01 Long term (current) use of anticoagulants; Z90.49 Acquired absence of other specified parts of digestive tract; Z95.0 Presence of cardiac pacemaker; Z87.891 Personal history of nicotine dependence; Z82.3 Family history of stroke; Z80.8 Family history of malignant neoplasm of other organs or systems
CPT/HCPCS: 36430; 45382; 80048 ×2; 80053; 82962 ×3; 85014 ×2; 85018 ×2; 85025 ×3; 85049; 85610 ×3; 85730; 86850; 86900; 86901; 94640 ×3; 96360; 99285; G0378; P9059; 36415; 36416; A4216; J2001; J3430

== ENCOUNTER 2017-12-21 10:17 | Outpatient (CLI) | payer MEDICARE, BC | END 2017-12-21 10:18 | disposition home or self-care (01) | LOC: DTY/OP 10:17 | PROVIDERS: ATTEND Family Medicine | DX: E11.22 Type 2 diabetes mellitus with diabetic chronic kidney disease (principal); N18.9 Chronic kidney disease, unspecified; Z71.89 Other specified counseling | CPT/HCPCS: 97802 ==

== ENCOUNTER 2019-01-10 13:44 | Outpatient (CLI) | payer MEDICARE, BC ==
--- NOTE | 2019-01-10 15:17 | RAD ---
FRONTAL AND LATERAL IMAGING CHEST: DATE: 01/10/2019. COMPARISON: 03/08/2017. HISTORY: Shortness of breath. FINDINGS: Stable dual-lead transvenous pacing device. No pneumothorax or pleural fluid. No focal consolidatio n or alveolar edema. There is mild increased linear density in the left base suggesting volume loss. IMPRESSION: No focal consolidation or alveolar edema. POS: [facility]
== END 2019-01-10 13:45 | disposition home or self-care (01) ==
LOC: RAD 13:44
PROVIDERS: ATTEND Internal Medicine Critical Care Medicine
DX: J45.909 Unspecified asthma, uncomplicated (principal)
CPT/HCPCS: 71046

== ENCOUNTER 2020-03-06 10:04 | Outpatient (CLI) | payer MEDICARE, BC ==
--- NOTE | 2020-03-06 11:59 | RAD ---
PA AND LATERAL CHEST: Comparison: 01-10-19 History: Dyspnea. Smoker. FINDINGS: Heart size within normal limits. A pacemaker is present. Linear parenchymal changes in the lung bases are similar to the previous exam. Some blunting to the costophrenic angle also appears chronic. IMPRESSION: Chronic appearing pleural and parenchymal changes in the lung bases. POS: [facility]
== END 2020-03-06 10:05 | disposition home or self-care (01) ==
LOC: BICRAD 10:04
PROVIDERS: ATTEND Internal Medicine Critical Care Medicine
DX: J45.909 Unspecified asthma, uncomplicated (principal); R91.8 Other nonspecific abnormal finding of lung field
CPT/HCPCS: 71046

== ENCOUNTER 2020-04-15 14:38 | Outpatient (CLI) | payer MEDICARE, BC ==
[~2020-04-15 14:38] MED LIST: Iopamidol 370 76% 100 ML VIAL ONE
--- NOTE | 2020-04-15 15:49 | CT ---
CT OF THE ABDOMEN AND PELVIS WITH IV CONTRAST INDICATION: History of weight loss of the last 3 months with constipation COMPARISON: None FINDINGS: ABDOMEN: Lung bases: There are numerous scattered pulmonary nodules involving the right middle lobe, visual ey es lingula, left lower lobe and right lower lobe suspicious for pulmonary metastatic disease. The largest is seen within the posterior medial aspect of the right lower lobe and is in a subpleural loc ation on image 8 of series 2, measuring 2.6 cm in length. There are areas of subsegmental volume loss involving both lower lobes. There are small bilateral pleural effusions. Liver: No focal lesion. Gallbladder: Normal appearing. Pancreas: There is an ill-defined irregular mass centered within the pancreatic body measuring 5.3 cm on image 33 of series 2. This is causing upstream dilatation of the main pancreatic duct. There are small cystic lesions involving the pancreatic head and body suspicious for small pancreatic cyst or sidebranch IPMN lesions. There is soft tissue mass extending posterior from the mass lesion and enveloping the proximal celiac artery and SMA arterial image 27 of series 4. There is also circumfere ntial involvement of the proximal splenic artery seen on image 25 of series 4. There is an enlarged peripancreatic lymph node seen adjacent to the pancreatic head on image 41 of series 2 measuring 10 m m. There is a portal caval lymph node measuring 1.7 cm. There is inflammatory stranding surrounding the pancreas. Small amount of edema seen within the anterior pararenal space. There is an enlarged ly mph node seen adjacent to the aorta measuring 1.2 cm on image 35 of series 2. Adrenal glands: Normal. Spleen: Normal. Kidneys and ureters: There are bilateral renal cysts. The largest cyst is seen within superior pole l eft kidney measuring 1.7 cm. There is a 3.8 mm nonobstructing calculus within the inferior pole of the left kidney. No hydronephrosis is evident. Vasculature: There are moderate vascular calcifications seen involving the visualized vasculature. Lymph nodes:There are multiple prominent periaortic lymph nodes. One of the largest is seen to the le ft of the aorta on image 55 of series 2 measuring 1.4 cm. Free fluid in abdomen:No free fluid is evident. PELVIS: Small and large bowel: There is colonic diverticulosis. The small bowel is of normal caliber. Appendix:Surgically absent Bladder: There is wall thickening with perivesicular fat stranding. Rectal and perirectal soft tissues:Normal. Reproductive structures: Normal. Free fluid in pelvis: No free fluid is evident. Lymphadenopathy pelvis: No lymphadenopathy is evident. Osseous structures: No acute osseous abnormality. No destructive osteolytic or osteoblastic lesion i s identified. There is scattered degenerative and osteoarthritic changes. Soft tissues:Normal. IMPRESSION: 1. Ill-defined irregular mildly hypodense mass centered within the proximal pancreatic body measuring approximately 5.3 cm with upstream dilatation the main pancreatic duct is suspicious for pancreatic malignancy. There is soft tissue density projecting posterior from the mass lesion involvi ng the proximal splenic artery, celiac artery and SMA suspicious for regional malignant spread. There are enlarged lymph nodes within the peripancreatic, portacaval and retroperitoneal region suspi cious for malignant lymphadenopathy. There are numerous pulmonary nodules within the lung bases suspicious for pulmonary metastatic disease. 2. Recommend follow-up CT the abdomen with and without contrast utilizing pancreatic mass protocol to better delineate the lesion within the proximal pancreatic body. 3. Small cystic lesions within the pancreatic head and body may reflect small pancreatic serous type cysts or small IPMN lesions. 4. There is inflammatory stranding surrounding the pancreas with some mild edema in the surrounding r etroperitoneum suspicious for component of acute pancreatitis. 5. Bilateral renal cysts and left nephrolithiasis.
== END 2020-04-15 14:39 | disposition home or self-care (01) ==
LOC: BICCT 14:38
PROVIDERS: ATTEND Internal Medicine Gastroenterology
DX: R63.0 Anorexia (principal); R63.4 Abnormal weight loss; Z86.010 Personal history of colon polyps; K86.89 Other specified diseases of pancreas; M79.89 Other specified soft tissue disorders; R59.0 Localized enlarged lymph nodes; R91.8 Other nonspecific abnormal finding of lung field; N20.0 Calculus of kidney; N28.1 Cyst of kidney, acquired
CPT/HCPCS: 74177; 82565; Q9967

== ENCOUNTER 2020-05-21 14:34 | Outpatient (CLI) | payer MEDICARE, BC ==
--- NOTE | 2020-05-21 16:04 | CT ---
CT OF THE CHEST WITH IV CONTRAST INDICATION: History of pancreatic cancer COMPARISON: Prior CT the abdomen and pelvis with contrast dated April 15, 2020 FINDINGS: CHEST: Lungs: There is worsening pulmonary nodularity involving both lungs suspicious for worsening pulmonar y metastatic disease. The largest pulmonary nodule within the right lower lobe now measures 3.2 x 1.8 cm on image 61 of series 3. Pleural space: There are small bilateral pleural effusions. There is subsegmental volume loss involv ing both lower lobes. Mediastinum: There are coronary artery and thoracic aortic calcifications. There is a left chest wall pacemaker. Upper abdomen:The invasive soft tissue mass of the proximal pancreatic body appears slightly larger b ut is difficult to fully measure due to the phase of contrast enhancement. There are numerous peripancreatic and upper abdominal lymph node suspicious for metastatic lymphadenopathy. Bilateral re nal cysts appear similar. Osseous structures: No acute osseous abnormality. No destructive osteolytic or osteoblastic lesion i s identified. There is scattered degenerative and osteoarthritic changes. Soft tissues:Normal. IMPRESSION: 1. Worsening pulmonary metastatic disease. 2. Small bilateral pleural effusions with bibasilar atelectasis 3. Suspected enlarging primary pancreatic mass lesion within the central abdomen with localized invas ion of the retroperitoneum with numerous enlarged upper abdominal and peripancreatic lymph nodes.
== END 2020-05-21 14:35 | disposition home or self-care (01) ==
LOC: BICCT 14:34
PROVIDERS: ATTEND Internal Medicine Hematology & Oncology
DX: C25.1 Malignant neoplasm of body of pancreas (principal); C78.00 Secondary malignant neoplasm of unspecified lung; J90 Pleural effusion, not elsewhere classified; J98.11 Atelectasis
CPT/HCPCS: 71260

== ENCOUNTER 2020-05-22 07:36 | Outpatient (CLI) | payer MEDICARE, BC ==
[2020-05-22 11:54] LABS: #Basophils 0.1 10x3/uL (0.0-0.2); #Eosinphils 0.3 10x3/uL (0.0-0.5); #Monocytes 0.8 10x3/uL (0.0-1.1); #Neutrophils 6.6 10x3/uL (1.5-8.4); %Basophils 0.9 % (0.0-2.0); %Eosinophils 3.2 % (0.0-6.0); %Lymphocytes 10.7 % (18.0-47.0); %Neutrophils 75.4 % (40.0-75.0); Hemoglobin 13.8 g/dL (14.0-18.0); Mean Corpuscular HGB CONC 32.7 G/DL (32.0-36.0); Mean Corpuscular Volume 88.7 fl (80.0-100.0); Mean Platelet Volume 10.6 fl (7.4-10.4); Platelet Count 260 10x3/uL (130-400); RBC Distribution Width 13.6 % (11.5-14.5); Red Blood Cell (RBC) Count 4.76 10x6/uL (4.40-5.80); White Blood Cell (WBC) Count 8.7 10x3/uL (4.5-11.0)
[2020-05-22 11:57] LABS: Anion Gap 13 mmol/L (10-20); BUN (Urea Nitrogen) 30 mg/dL (8.4-25.7); Calc. Creatinine Clearance 0 mL/min (70-130); Calcium 10.2 mg/dL (7.8-10.44); Carbon Dioxide 29 mmol/L (23-31); Chloride 94 mmol/L (98-107); Glucose 66 mg/dL (83-110); Potassium 4.2 mmol/L (3.5-5.1); Sodium 132 mmol/L (136-145)
[2020-05-22 20:23] LABS: SARS-CoV-2 PCR by NAA Not Detected (NotDetected)
--- NOTE | 2020-05-25 10:50 | EKG ---
Test Reason : PREOP Blood Pressure : / mmHG Vent. Rate : 062 BPM Atrial Rate : 062 BPM P-R Int : 224 ms QRS Dur : 092 ms QT Int : 450 ms P-R-T Axes : 022 014 052 degrees QTc Int : 456 ms Atrial-paced rhythm with prolonged AV conduction Possible Anterior infarct , age undetermined Abnormal ECG No previous ECGs available Confirmed by NIR CONTRERAS ([id number]) on 05/25/2020 10:50:08 AM Referred By: SCOTT Confirmed By:NIR CONTRERAS
== END 2020-05-22 07:37 | disposition home or self-care (01) ==
LOC: LABBT 07:36
PROVIDERS: ATTEND Specialist
DX: Z01.818 Encounter for other preprocedural examination (principal); C25.9 Malignant neoplasm of pancreas, unspecified; R63.0 Anorexia; R63.4 Abnormal weight loss; R11.2 Nausea with vomiting, unspecified; Z20.822 Contact with and (suspected) exposure to COVID-19
CPT/HCPCS: 80048; 85025; 93005; U0003; U0005; 87635; 93010

== ENCOUNTER 2020-05-27 08:28 | Day surgery (SDC) | payer MEDICARE, BC ==
[2020-05-26 10:11] VITALS: BMI 29.9
[2020-05-27] MEDS ORDERED: Lidocaine 1% PF 5 ML VIAL ONE (09:18)
[2020-05-27] MEDS ORDERED: Levofloxacin 500 mg/D5W 100 ml Premix Bag ONE (09:22)
[2020-05-27] MEDS ORDERED: XYLOCAINE 2%-EPI 1:100,000 20 ML VIAL ONE (10:04)
[2020-05-27] MEDS ORDERED: Bupivacaine 0.25% HCL 30 ML VIAL ONE (10:04)
[2020-05-27] MEDS ORDERED: Fentanyl 100 MCG/2 ML VIAL ONE (10:05)
[2020-05-27] MEDS ORDERED: Midazolam HCl 5 mg/5 ml Vial ONE (10:06)
--- NOTE | 2020-05-27 11:13 | OP ---
DATE OF PROCEDURE: 05/27/2020 PREOPERATIVE DIAGNOSES: 1. Pancreatic cancer. 2. Need of antineoplastic chemotherapy access. 3. Defibrillator in left chest. POSTOPERATIVE DIAGNOSES: 1. Pancreatic cancer. 2. Need of antineoplastic chemotherapy access. 3. Defibrillator in left chest. PROCEDURE PERFORMED: Right subclavian vein low-profile PowerPort, MediPort. ANESTHESIA: Intravenous sedation and local with 0.5% Marcaine 30 mL, mixed with 1% Xylocaine with epinephrine 20 mL. DESCRIPTION OF PROCEDURE: The patient was taken to the operating room where under intravenous sedation, neck and chest were clipped of hair, prepared with ChloraPrep, and draped in routine fashion. Local anesthetic infiltrated in the skin and subcutaneous tissue about the operative site. Infraclavicular approach to access the right subclavian vein, threading the J-wire, removing the trocar catheter and skin site enlarged sharply and subcutaneous pocket created with blunt and sharp dissection, gaining hemostasis with cautery. Dilator and Peel-Away sheath were placed over the J-wire into superior vena cava and dilator and J-wire were removed. Catheter was placed over the Peel-Away sheath. Peel-Away sheath removed. Fluoroscopic images used to place the catheter tip in optimal position in the SVC and catheter tailored to length, connected to the MediPort, placed in subcutaneous pocket, secured with 2 interrupted sutures of 3-0 Prolene. Subcutaneous tissue was approximated with 3-0 Monocryl, skin with subdermal 4-0 Monocryl, and [place] glue applied. The [place] needle access the MediPort, aspirated blood, flushed with heparinized saline solution and sterile dressing was applied. Final fluoroscopic images revealed good line placement. Job ID: [id number]
--- NOTE | 2020-05-27 11:36 | RAD ---
EXAM: CHEST ONE VIEW HISTORY: Post Mediport placement evaluate for pneumothorax. COMPARISON: 03/06/[address] thorax on the 05/21/2020 FINDINGS: Dual lead left subclavian cardiac pacemaking device remains in place. A right subclavian Mediport cat heter is now noted in place with tip overlying the proximal SVC. No pneumothorax is appreciated. Bibasilar pleural and parenchymal changes are seen which were shown to represent bilateral pleural ef fusions and associated atelectasis similar to prior CT exam. Several faint tiny prominent nodules are seen within the lungs bilaterally shown to represent multiple metastatic pulmonary nodules on CT thorax. No other interval change. IMPRESSION: 1. Interval placement of right-sided Mediport catheter without evidence of pneumothorax. 2. Bibasilar pleural and parenchymal lung changes also seen on CT thorax and shown to represent bilat eral pleural effusions and associated areas of consolidation probably related to passive atelectasis. 3. Multiple tiny pulmonary nodules are seen in the left lung and shown to represent multiple metastat ic pulmonary nodules on prior CT exam.
== END 2020-05-27 12:50 | disposition home or self-care (01) ==
LOC: SDC 08:28
PROVIDERS: ATTEND Specialist
PROC: 0JH63WZ Insertion of Totally Implantable Vascular Access Device into Chest Subcutaneous Tissue and Fascia, Percutaneous Approach (ICD-10-PCS; principal; 2020-05-27)
PROC: 02HV33Z Insertion of Infusion Device into Superior Vena Cava, Percutaneous Approach (ICD-10-PCS; 2020-05-27)
DX: C25.9 Malignant neoplasm of pancreas, unspecified (principal); C79.9 Secondary malignant neoplasm of unspecified site; I13.0 Hypertensive heart and chronic kidney disease with heart failure and stage 1 through stage 4 chronic kidney disease, or unspecified chronic kidney disease; E11.22 Type 2 diabetes mellitus with diabetic chronic kidney disease; N18.30 Chronic kidney disease, stage 3 unspecified; I50.30 Unspecified diastolic (congestive) heart failure; I48.91 Unspecified atrial fibrillation; M10.9 Gout, unspecified; E78.5 Hyperlipidemia, unspecified; R63.4 Abnormal weight loss; R63.0 Anorexia; Z68.30 Body mass index [BMI] 30.0-30.9, adult; Z87.891 Personal history of nicotine dependence; Z79.01 Long term (current) use of anticoagulants; Z79.4 Long term (current) use of insulin; Z79.899 Other long term (current) drug therapy; Z88.0 Allergy status to penicillin; Z88.2 Allergy status to sulfonamides; Z95.810 Presence of automatic (implantable) cardiac defibrillator
CPT/HCPCS: 36561; 71045; 82962; C1788; 36416; J1642; J1956; J2250; J3010; S0020

== ENCOUNTER 2020-06-24 00:25 | Inpatient (IN) | payer MEDICARE, BC ==
[2020-06-24] MEDS ORDERED: Lidocaine 4% Cream 5 GM TUBE w/ Tegaderm ONE (00:34)
[2020-06-24 01:40] LABS: INR-International Normal Ratio 1.7; Prothrombin Time 20.5 sec (12.0-14.7)
[2020-06-24 01:49] LABS: Hemoglobin 5.5 g/dL (14.0-18.0); Mean Corpuscular HGB CONC 32.7 g/dL (32.0-36.0); Mean Corpuscular Hemoglobin 30.3 pg (27.0-31.0); Mean Corpuscular Volume 92.6 fL (78.0-98.0); Mean Platelet Volume 8.3 fL (7.4-10.4); Platelet Count 150 thou/uL (130-400); RBC Distribution Width 14.3 % (11.5-14.5); Red Blood Cell (RBC) Count 1.81 mill/uL (4.70-6.10); White Blood Cell (WBC) Count 55.9 thou/uL (4.8-10.8)
[2020-06-24 02:02] LABS: ALT (SGPT) 29 U/L (8-55); AST (SGOT) 27 U/L (5-34); Albumin 2.5 g/dL (3.4-4.8); Alkaline Phosphatase 133 U/L (40-110); Anion Gap 11 mmol/L (10-20); BUN (Urea Nitrogen) 33 mg/dL (8.4-25.7); Bilirubin, Total 0.6 mg/dL (0.2-1.2); Calc. Creatinine Clearance 0 mL/min (70-130); Calcium 7.9 mg/dL (7.8-10.44); Carbon Dioxide 26 mmol/L (23-31); Chloride 102 mmol/L (98-107); Globulin 2.4 g/dL (2.4-3.5); Glucose 223 mg/dL (83-110); Potassium 4.6 mmol/L (3.5-5.1); Protein, Total 4.9 g/dL (5.8-8.1); Sodium 134 mmol/L (136-145)
[2020-06-24 02:04] LABS: Band 37 % (5-11); Lymphocytes 4 % (21-51); MDiff Complete? YES; Metamyelocyte 9 % (0-0); Monocytes 5 % (0-10); Myelocyte 4 % (0-0); Neutrophil 41 % (42-75); Platelet Morphology Comment Appears Adequate
[2020-06-24] MEDS ORDERED: Ondansetron PF 4 MG/2 ML Vial IVP PRN (03:12)
[2020-06-24] MEDS ORDERED: Ondansetron ODT 4 MG TAB PO PRN ×2 (03:12→03:17)
[2020-06-24] MEDS ORDERED: Acetaminophen 500 MG TAB ONE (03:36)
[2020-06-24] MEDS ORDERED: Dextrose 50% Abboject 50 ML SYRINGE SLOW IVP PRN (03:50)
[2020-06-24] MEDS ORDERED: HumaLOG 300 UNITS/3 ML VIAL SC PRN ×2 (03:50)
[2020-06-24 04:11] VITALS: BMI 30.4
[2020-06-24] MEDS ORDERED: Prochlorperazine Maleate 5 MG TAB PO PRN (04:12)
[2020-06-24] MEDS ORDERED: traMADol HCl 50 MG TAB ONE ×2 (05:55→14:08)
[2020-06-24] MEDS: traMADol HCl 50 MG TAB PO PRN ×2 (06:07→14:05)
[2020-06-24] MEDS: Levothyroxine Sodium 100 MCG TAB PO SCH (06:37)
[2020-06-24] MEDS ORDERED: GUAIFENESIN SF SOLN 200 MG/10 ML UDCUP PO PRN (08:10)
[2020-06-24] MEDS ORDERED: Sodium Chloride 0.65% Nasal 44 ML BOT EA NARE PRN (08:10)
[2020-06-24] MEDS ORDERED: Loperamide HCl 2 MG CAP PO PRN (08:10)
[2020-06-24] MEDS ORDERED: Zolpidem Tartrate 5 MG TAB PO PRN (08:10)
[2020-06-24] MEDS ORDERED: Calcium Carbonate 500 MG ChewTAB PO PRN (08:10)
[2020-06-24] MEDS ORDERED: hydrALAZINE 20 MG/ML VIAL SLOW IVP PRN (08:10)
[2020-06-24] MEDS ORDERED: Acetaminophen 325 MG TAB ONE ×2 (08:31→18:29)
[2020-06-24] MEDS: Acetaminophen 325 MG TAB PO PRN ×2 (08:41→18:28)
[2020-06-24] MEDS: Carvedilol 25 MG TAB PO SCH ×2 (08:45→23:08)
[2020-06-24] MEDS: Loratadine 10 MG TAB PO SCH (08:45)
[2020-06-24] MEDS: Atorvastatin Calcium 20 MG TAB PO SCH (08:45)
[2020-06-24] MEDS: Pantoprazole 40 MG VIAL IVP SCH (08:45)
[2020-06-24] MEDS: Potassium Chloride 10 MEQ TAB PO SCH (08:45)
[2020-06-24] MEDS: Allopurinol 300 MG TAB PO SCH (08:45)
[2020-06-24] MEDS: Amiodarone 200 MG TAB PO SCH (08:45)
[2020-06-24] MEDS: Gabapentin 100 MG CAP PO SCH ×2 (08:45→23:07)
[2020-06-24] MEDS: Torsemide 20 MG TAB PO SCH (08:46)
[2020-06-24 09:07] LABS: SARS-CoV-2 PCR by NAA Not Detected (NotDetected)
[2020-06-24] MEDS ORDERED: Heparin 1,000 UNITS/ML VIAL ONE (09:20)
[2020-06-24] MEDS: HYDROcodone/Acetaminophen 5/325 mg Tablet PO PRN ×3 (09:53→23:06)
[2020-06-24] MEDS ORDERED: HYDROcodone/Acetaminophen 5/325 mg Tablet ONE ×2 (10:04→15:35)
[2020-06-24] MEDS: Mometasone 200 MCG/Formoterol 5 MCG 120 PUFF INHALER INH SCH (10:13)
[2020-06-24 11:39] LABS: Hemoglobin 11.6 g/dL (14.0-18.0); Mean Corpuscular HGB CONC 32.5 g/dL (32.0-36.0); Mean Corpuscular Hemoglobin 29.8 pg (27.0-31.0); Mean Corpuscular Volume 91.6 fL (78.0-98.0); Mean Platelet Volume 8.5 fL (7.4-10.4); Platelet Count 126 thou/uL (130-400); RBC Distribution Width 14.3 % (11.5-14.5); Red Blood Cell (RBC) Count 3.89 mill/uL (4.70-6.10); White Blood Cell (WBC) Count 47.9 thou/uL (4.8-10.8)
[2020-06-24 11:58] LABS: Band 36 % (5-11); Lymphocytes 7 % (21-51); MDiff Complete? YES; Metamyelocyte 2 % (0-0); Monocytes 2 % (0-10); Myelocyte 3 % (0-0); Neutrophil 50 % (42-75); Platelet Morphology Comment Appears Decreased; Polychromasia SLIGHT = 2-3 cells (100X) (0-2/hpf)
[2020-06-24 12:15] LABS: Free T4 (Free Thyroxine) 1.15 ng/dL (0.70-1.48)
[2020-06-24 12:18] LABS: Thyroid Stimulating Hormone 4.1826 uIU/mL (0.35-4.94)
[2020-06-24 13:00] LABS: Vitamin B12 Greater than 2000 pg/mL (211-911)
[2020-06-24] MEDS: Multivit, Therapeutic 1 TAB PO SCH (14:04)
[2020-06-24] MEDS: Cholecalciferol 1,000 UNITS (25 MCG) TAB PO SCH (14:04)
[2020-06-24 15:34] LABS: Hemoglobin 11.4 g/dL (14.0-18.0)
[2020-06-24] MEDS ORDERED: Non-Formulary Item 1 EACH (Insulin Glargine,Hum.Rec.Anlog [Lantus Solostar] 100 UNIT/ML P SC SCH (21:00)
[2020-06-24 21:16] LABS: Hemoglobin 11.6 g/dL (14.0-18.0)
[2020-06-24] MEDS: traZODone HCl 50 MG TAB PO SCH (23:08)
[2020-06-24 23:19] LABS: Bilirubin Negative (Negative); Blood, Urine 2+ (Negative); Clarity Clear (Clear); Glucose, Urine (Dipstick) Normal (Negative); Ketone, Urine Negative (Negative); Leukocyte Negative Leu/uL (Negative); Nitrite Negative (Negative); Protein, Urine (Dipstick) 30 mg/dL (Neg-Trace); Specific Gravity, Urine 1.019 (1.002-1.036); Squamous Epithelial None Seen HPF (0-3); Urobilinogen Normal mg/dL (Less than 2); WBC/HPF 0-3 HPF (0-3); pH, Urine 5.5 (5.0-9.0)
[2020-06-24 23:26] LABS: Bacteria/HPF Rare-Few HPF (None Seen)
[2020-06-24 23:28] LABS: Urine Culture Reflex No No
[2020-06-24] MEDS: Insulin Glargine 30 UNITS in Pre-Filled Syringe 1 EACH SC SCH (23:29)
[2020-06-24] MEDS: Colchicine 0.6 MG TAB PO SCH (23:30)
[2020-06-25] MEDS: Mometasone 200 MCG/Formoterol 5 MCG 120 PUFF INHALER INH SCH ×3 (00:01→20:18)
[2020-06-25] MEDS: HYDROcodone/Acetaminophen 5/325 mg Tablet PO PRN ×2 (03:03→19:55)
[2020-06-25] MEDS: Senokot S 8.6-50 MG TAB PO PRN (03:04)
[2020-06-25] MEDS: Levothyroxine Sodium 100 MCG TAB PO SCH (05:21)
[2020-06-25 06:04] LABS: ALT (SGPT) 46 U/L (8-55); AST (SGOT) 28 U/L (5-34); Albumin 2.4 g/dL (3.4-4.8); Alkaline Phosphatase 153 U/L (40-110); Anion Gap 9 mmol/L (10-20); BUN (Urea Nitrogen) 26 mg/dL (8.4-25.7); Bilirubin, Total 0.7 mg/dL (0.2-1.2); Calc. Creatinine Clearance 102 mL/min (70-130); Calcium 8.2 mg/dL (7.8-10.44); Carbon Dioxide 28 mmol/L (23-31); Chloride 100 mmol/L (98-107); Globulin 2.6 g/dL (2.4-3.5); Glucose 155 mg/dL (83-110); Potassium 4.3 mmol/L (3.5-5.1); Sodium 133 mmol/L (136-145)
[2020-06-25] MEDS: Pantoprazole 40 MG VIAL IVP SCH (09:06)
[2020-06-25] MEDS: Atorvastatin Calcium 20 MG TAB PO SCH (09:07)
[2020-06-25] MEDS: Carvedilol 25 MG TAB PO SCH ×2 (09:07→21:28)
[2020-06-25] MEDS: Allopurinol 300 MG TAB PO SCH (09:07)
[2020-06-25] MEDS: Cholecalciferol 1,000 UNITS (25 MCG) TAB PO SCH (09:07)
[2020-06-25] MEDS: Potassium Chloride 10 MEQ TAB PO SCH (09:08)
[2020-06-25] MEDS: Multivit, Therapeutic 1 TAB PO SCH (09:08)
[2020-06-25] MEDS: Amiodarone 200 MG TAB PO SCH (09:08)
[2020-06-25] MEDS: Gabapentin 100 MG CAP PO SCH ×2 (09:08→21:29)
[2020-06-25] MEDS: Loratadine 10 MG TAB PO SCH (09:09)
[2020-06-25] MEDS: Colchicine 0.6 MG TAB PO SCH ×2 (09:09→21:29)
[2020-06-25] MEDS: Torsemide 20 MG TAB PO SCH (09:09)
[2020-06-25] MEDS: Acetaminophen 325 MG TAB PO PRN ×2 (09:20→14:28)
[2020-06-25] MEDS ORDERED: Lidocaine 1% (PF) 30 ML VIAL ONE (10:21)
[2020-06-25 12:34] LABS: Synovial Fluid, Protein 1.7 g/dL (Not Available)
[2020-06-25 12:47] LABS: RBC Count-Automated (BF) 967 /cu.mm; WBC/Nucleated-Auto (BF) 24586 uL
[2020-06-25 13:09] LABS: BF Color Yellow; Body Fluid Source Synovial Fluid; Clarity Cloudy/Turbid (Clear); Tube # EDTA
[2020-06-25 13:12] LABS: BF Segmented Neutrophils 86 %; Cell Count Non Hematic 11 %; Lymphocytes 3 %
[2020-06-25] MEDS ORDERED: Vancomycin 1 GM in Premix Bag 1 BAG IVPB SCH (21:00)
[2020-06-25] MEDS: traZODone HCl 50 MG TAB PO SCH (21:28)
[2020-06-25] MEDS: cefTRIAXone\\ROCEPHIN 2 GM in Sodium Chloride 0.9% 100 ML IVPB SCH (21:36)
[2020-06-25] MEDS: Insulin Glargine 30 UNITS in Pre-Filled Syringe 1 EACH SC SCH (21:37)
[2020-06-25] MEDS ORDERED: VANCOMYCIN 2 GRAM/400 ML BAG 2 GM in Premix Bag 1 BAG IVPB SCH (22:00)
[2020-06-26] MEDS: HYDROcodone/Acetaminophen 5/325 mg Tablet PO PRN ×2 (04:14→11:12)
[2020-06-26] MEDS: traMADol HCl 50 MG TAB PO PRN (06:29)
[2020-06-26] MEDS: Levothyroxine Sodium 100 MCG TAB PO SCH (06:31)
[2020-06-26] MEDS: Mometasone 200 MCG/Formoterol 5 MCG 120 PUFF INHALER INH SCH ×2 (06:50→19:09)
[2020-06-26] MEDS: Carvedilol 25 MG TAB PO SCH ×2 (08:17→21:45)
[2020-06-26] MEDS: Amiodarone 200 MG TAB PO SCH (08:18)
[2020-06-26] MEDS: Allopurinol 300 MG TAB PO SCH ×2 (08:21→08:27)
[2020-06-26] MEDS: Multivit, Therapeutic 1 TAB PO SCH (08:22)
[2020-06-26] MEDS: Atorvastatin Calcium 20 MG TAB PO SCH ×2 (08:22→08:29)
[2020-06-26] MEDS: Loratadine 10 MG TAB PO SCH ×2 (08:22→08:28)
[2020-06-26] MEDS: Gabapentin 100 MG CAP PO SCH ×3 (08:22→22:09)
[2020-06-26] MEDS: Torsemide 20 MG TAB PO SCH ×2 (08:22→09:56)
[2020-06-26] MEDS: Potassium Chloride 10 MEQ TAB PO SCH (08:22)
[2020-06-26] MEDS: Cholecalciferol 1,000 UNITS (25 MCG) TAB PO SCH (08:22)
[2020-06-26] MEDS: Colchicine 0.6 MG TAB PO SCH ×3 (08:22→21:45)
[2020-06-26] MEDS: Pantoprazole 40 MG VIAL IVP SCH (08:29)
[2020-06-26 08:35] LABS: Hemoglobin 10.7 g/dL (14.0-18.0); Mean Corpuscular HGB CONC 32.6 g/dL (32.0-36.0); Mean Corpuscular Hemoglobin 30.6 pg (27.0-31.0); Mean Corpuscular Volume 93.8 fL (78.0-98.0); Mean Platelet Volume 8.1 fL (7.4-10.4); Platelet Count 184 thou/uL (130-400); RBC Distribution Width 15.4 % (11.5-14.5); Red Blood Cell (RBC) Count 3.49 mill/uL (4.70-6.10); White Blood Cell (WBC) Count 39.7 thou/uL (4.8-10.8)
[2020-06-26 09:02] LABS: ALT (SGPT) 79 U/L (8-55); AST (SGOT) 46 U/L (5-34); Albumin 2.1 g/dL (3.4-4.8); Alkaline Phosphatase 198 U/L (40-110); Anion Gap 11 mmol/L (10-20); BUN (Urea Nitrogen) 26 mg/dL (8.4-25.7); Bilirubin, Total 0.3 mg/dL (0.2-1.2); Calc. Creatinine Clearance 95 mL/min (70-130); Calcium 7.8 mg/dL (7.8-10.44); Carbon Dioxide 29 mmol/L (23-31); Chloride 102 mmol/L (98-107); Globulin 2.6 g/dL (2.4-3.5); Glucose 81 mg/dL (83-110); Potassium 3.7 mmol/L (3.5-5.1); Protein, Total 4.7 g/dL (5.8-8.1); Sodium 138 mmol/L (136-145)
[2020-06-26 09:25] LABS: Band 31 % (5-11); Lymphocytes 2 % (21-51); MDiff Complete? YES; Metamyelocyte 2 % (0-0); Monocytes 1 % (0-10); Myelocyte 1 % (0-0); Neutrophil 63 % (42-75); Platelet Morphology Comment Appears Adequate; Polychromasia SLIGHT = 2-3 cells (100X) (0-2/hpf)
[2020-06-26] MEDS: Vancomycin 1.5 GRAM/300 ML BAG 1.5 GM in Premix Bag 1 BAG IVPB SCH ×2 (09:53→22:48)
[2020-06-26] MEDS ORDERED: PROPOFOL 200 MG/20 ML VIAL ONE (10:22)
[2020-06-26] MEDS ORDERED: Metoclopramide HCl 10 MG/2 ML VIAL ONE (10:22)
[2020-06-26] MEDS ORDERED: PHENYLEPHRINE-NS 100 MCG/ML 10 ML SYRINGE ONE (10:22)
[2020-06-26] MEDS ORDERED: Ondansetron PF 4 MG/2 ML Vial ONE (10:22)
[2020-06-26] MEDS ORDERED: Lidocaine 1% PF 5 ML VIAL ONE (10:22)
[2020-06-26] MEDS: Dextrose 5% in Water 1,000 ML IV PRN (11:16)
[2020-06-26] MEDS ORDERED: Famotidine/PF 20 mg/2ml Vial ONE (12:55)
[2020-06-26] MEDS ORDERED: Fentanyl 100 MCG/2 ML VIAL ONE ×2 (12:55→15:52)
[2020-06-26] MEDS ORDERED: Neomycin-Polymyxin 1 ML AMP ONE (12:56)
[2020-06-26] MEDS ORDERED: Ondansetron HCl/PF 4 MG/2 ML Vial IVP PRN (13:52)
[2020-06-26] MEDS: Insulin Glargine 30 UNITS in Pre-Filled Syringe 1 EACH SC SCH (21:45)
[2020-06-26] MEDS: traZODone HCl 50 MG TAB PO SCH (21:45)
[2020-06-26] MEDS: cefTRIAXone\\ROCEPHIN 2 GM in Sodium Chloride 0.9% 100 ML IVPB SCH (21:45)
[2020-06-26] MEDS: Cepastat Lozenges 1 LOZ PO PRN (23:45)
[2020-06-27] MEDS ORDERED: Lorazepam 2 MG/ML VIAL SLOW IVP SCH (01:30)
[2020-06-27] MEDS: traMADol HCl 50 MG TAB PO PRN (01:33)
[2020-06-27] MEDS: Levothyroxine Sodium 100 MCG TAB PO SCH (06:07)
[2020-06-27] MEDS: Cepastat Lozenges 1 LOZ PO PRN (06:08)
[2020-06-27] MEDS: Mometasone 200 MCG/Formoterol 5 MCG 120 PUFF INHALER INH SCH ×2 (06:51→18:59)
[2020-06-27] MEDS: Colchicine 0.6 MG TAB PO SCH ×2 (08:53→21:15)
[2020-06-27] MEDS: Bisacodyl 5 MG TAB PO PRN ×2 (08:53→21:16)
[2020-06-27] MEDS: Torsemide 20 MG TAB PO SCH (08:53)
[2020-06-27] MEDS: Potassium Chloride 10 MEQ TAB PO SCH (08:53)
[2020-06-27] MEDS: Allopurinol 300 MG TAB PO SCH (08:53)
[2020-06-27] MEDS: Amiodarone 200 MG TAB PO SCH (08:53)
[2020-06-27] MEDS: Multivit, Therapeutic 1 TAB PO SCH (08:53)
[2020-06-27] MEDS: Loratadine 10 MG TAB PO SCH (08:54)
[2020-06-27] MEDS: Carvedilol 25 MG TAB PO SCH ×2 (08:54→21:15)
[2020-06-27] MEDS: Cholecalciferol 1,000 UNITS (25 MCG) TAB PO SCH (08:54)
[2020-06-27] MEDS: Gabapentin 100 MG CAP PO SCH ×2 (08:54→21:16)
[2020-06-27] MEDS: Atorvastatin Calcium 20 MG TAB PO SCH (08:54)
[2020-06-27] MEDS: Pantoprazole 40 MG VIAL IVP SCH (08:55)
[2020-06-27 09:04] LABS: Vancomycin, Trough 28.3 ug/mL
[2020-06-27] MEDS: Polyethylene Glycol 3350 17 GM Packet PO PRN (09:23)
[2020-06-27] MEDS: Vancomycin 1.5 GRAM/300 ML BAG 1.5 GM in Premix Bag 1 BAG IVPB SCH (09:23)
[2020-06-27] MEDS: HYDROcodone/Acetaminophen 5/325 mg Tablet PO PRN ×2 (09:23→21:15)
[2020-06-27] MEDS: CEFAZOLIN 2 GM in Premix Bag 1 BAG IVPB SCH (19:34)
[2020-06-27] MEDS: Insulin Glargine 30 UNITS in Pre-Filled Syringe 1 EACH SC SCH (21:05)
[2020-06-27] MEDS: traZODone HCl 50 MG TAB PO SCH (21:15)
[2020-06-28] MEDS: CEFAZOLIN 2 GM in Premix Bag 1 BAG IVPB SCH ×3 (02:00→17:59)
[2020-06-28] MEDS: traMADol HCl 50 MG TAB PO PRN ×2 (03:04→21:03)
[2020-06-28] MEDS: Levothyroxine Sodium 100 MCG TAB PO SCH (06:00)
[2020-06-28 07:26] LABS: ALT (SGPT) 54 U/L (8-55); AST (SGOT) 35 U/L (5-34); Alkaline Phosphatase 354 U/L (40-110); Anion Gap 12 mmol/L (10-20); BUN (Urea Nitrogen) 32 mg/dL (8.4-25.7); Bilirubin, Total 0.2 mg/dL (0.2-1.2); CRP (Inflammatory) 23.32 mg/dL (= or < 0.5); Calc. Creatinine Clearance 79 mL/min (70-130); Calcium 7.6 mg/dL (7.8-10.44); Carbon Dioxide 31 mmol/L (23-31); Chloride 101 mmol/L (98-107); Globulin 2.8 g/dL (2.4-3.5); Glucose 76 mg/dL (83-110); Potassium 3.5 mmol/L (3.5-5.1); Protein, Total 4.8 g/dL (5.8-8.1); Sodium 140 mmol/L (136-145); Uric Acid 5.6 mg/dL (3.5-7.2)
[2020-06-28] MEDS: Mometasone 200 MCG/Formoterol 5 MCG 120 PUFF INHALER INH SCH ×2 (07:29→19:22)
[2020-06-28 08:11] LABS: Band 17 % (5-11); Hemoglobin 10.2 g/dL (14.0-18.0); Lymphocytes 4 % (21-51); MDiff Complete? YES; Mean Corpuscular HGB CONC 31.2 g/dL (32.0-36.0); Mean Corpuscular Hemoglobin 29.5 pg (27.0-31.0); Mean Corpuscular Volume 94.5 fL (78.0-98.0); Mean Platelet Volume 8.6 fL (7.4-10.4); Monocytes 8 % (0-10); Neutrophil 71 % (42-75); Platelet Count 236 thou/uL (130-400); RBC Distribution Width 15.8 % (11.5-14.5); Red Blood Cell (RBC) Count 3.47 mill/uL (4.70-6.10); White Blood Cell (WBC) Count 24.3 thou/uL (4.8-10.8)
[2020-06-28] MEDS: Carvedilol 25 MG TAB PO SCH ×2 (08:28→21:00)
[2020-06-28] MEDS: HYDROcodone/Acetaminophen 5/325 mg Tablet PO PRN ×4 (08:29→23:57)
[2020-06-28] MEDS: Potassium Chloride 10 MEQ TAB PO SCH (08:30)
[2020-06-28] MEDS: Loratadine 10 MG TAB PO SCH (08:30)
[2020-06-28] MEDS: Amiodarone 200 MG TAB PO SCH (08:30)
[2020-06-28] MEDS: Allopurinol 300 MG TAB PO SCH (08:31)
[2020-06-28] MEDS: Gabapentin 100 MG CAP PO SCH ×2 (08:31→21:01)
[2020-06-28] MEDS: Multivit, Therapeutic 1 TAB PO SCH (08:31)
[2020-06-28] MEDS: Cholecalciferol 1,000 UNITS (25 MCG) TAB PO SCH (08:31)
[2020-06-28] MEDS: Atorvastatin Calcium 20 MG TAB PO SCH (08:31)
[2020-06-28] MEDS: Colchicine 0.6 MG TAB PO SCH ×2 (08:32→21:00)
[2020-06-28] MEDS: Pantoprazole 40 MG VIAL IVP SCH (08:32)
[2020-06-28] MEDS: Torsemide 20 MG TAB PO SCH (08:32)
[2020-06-28] MEDS ORDERED: Vancomycin 1 GM in Premix Bag 1 BAG IVPB SCH (10:00)
[2020-06-28] MEDS: traZODone HCl 50 MG TAB PO SCH (21:00)
[2020-06-28] MEDS: Senokot S 8.6-50 MG TAB PO PRN (21:01)
[2020-06-28] MEDS: Acetaminophen 325 MG TAB PO PRN (21:02)
[2020-06-28] MEDS: Insulin Glargine 30 UNITS in Pre-Filled Syringe 1 EACH SC SCH (21:15)
[2020-06-29] MEDS: CEFAZOLIN 2 GM in Premix Bag 1 BAG IVPB SCH ×3 (01:42→17:28)
[2020-06-29] MEDS: HYDROcodone/Acetaminophen 5/325 mg Tablet PO PRN ×3 (04:14→15:15)
[2020-06-29] MEDS: Carvedilol 25 MG TAB PO SCH ×2 (05:43→20:00)
[2020-06-29] MEDS: Levothyroxine Sodium 100 MCG TAB PO SCH (05:43)
[2020-06-29] MEDS: Mometasone 200 MCG/Formoterol 5 MCG 120 PUFF INHALER INH SCH ×2 (08:21→19:44)
[2020-06-29] MEDS: Colchicine 0.6 MG TAB PO SCH ×2 (08:21→20:00)
[2020-06-29] MEDS: Loratadine 10 MG TAB PO SCH (08:40)
[2020-06-29] MEDS: Atorvastatin Calcium 20 MG TAB PO SCH (08:40)
[2020-06-29] MEDS: Gabapentin 100 MG CAP PO SCH ×2 (08:40→20:00)
[2020-06-29] MEDS: Allopurinol 300 MG TAB PO SCH (08:41)
[2020-06-29] MEDS: Cholecalciferol 1,000 UNITS (25 MCG) TAB PO SCH (08:42)
[2020-06-29] MEDS: Amiodarone 200 MG TAB PO SCH (08:42)
[2020-06-29] MEDS: Multivit, Therapeutic 1 TAB PO SCH (08:43)
[2020-06-29] MEDS: Pantoprazole 40 MG VIAL IVP SCH (08:43)
[2020-06-29] MEDS: Potassium Chloride 10 MEQ TAB PO SCH (08:43)
[2020-06-29] MEDS ORDERED: Fentanyl 100 MCG/2 ML VIAL ONE ×2 (09:30→10:32)
[2020-06-29] MEDS ORDERED: Bupivacaine 0.25% HCL 30 ML VIAL ONE (10:19)
[2020-06-29] MEDS ORDERED: XYLOCAINE 2%-EPI 1:100,000 20 ML VIAL ONE (10:19)
[2020-06-29] MEDS ORDERED: PROPOFOL 200 MG/20 ML VIAL ONE (10:30)
[2020-06-29] MEDS ORDERED: PROPOFOL 40 ML ONE (10:32)
[2020-06-29] MEDS ORDERED: Promethazine HCl 25 MG/ML VIAL IM PRN (10:59)
[2020-06-29] MEDS ORDERED: Ondansetron HCl/PF 4 MG/2 ML Vial IVP PRN (10:59)
[2020-06-29] MEDS ORDERED: Promethazine HCl 25 MG/ML VIAL SLOW IVP PRN (10:59)
[2020-06-29] MEDS: Torsemide 20 MG TAB PO SCH (15:16)
[2020-06-29] MEDS ORDERED: Senokot 8.6 MG TAB PO PRN (16:56)
[2020-06-29] MEDS: Lidocaine 5% Patch TD SCH (17:29)
[2020-06-29] MEDS: Morphine ER 15 MG TAB PO SCH (20:00)
[2020-06-29] MEDS: traZODone HCl 50 MG TAB PO SCH (20:00)
[2020-06-29] MEDS: Insulin Glargine 30 UNITS in Pre-Filled Syringe 1 EACH SC SCH (21:00)
[2020-06-29] MEDS: HYDROcodone/Acetaminophen 10/325 mg Tablet PO PRN (23:09)
[2020-06-29] MEDS: Senokot S 8.6-50 MG TAB PO PRN (23:09)
[2020-06-30] MEDS: CEFAZOLIN 2 GM in Premix Bag 1 BAG IVPB SCH ×3 (02:41→17:59)
[2020-06-30] MEDS: Levothyroxine Sodium 100 MCG TAB PO SCH (05:54)
[2020-06-30] MEDS: HYDROcodone/Acetaminophen 10/325 mg Tablet PO PRN ×2 (06:04→23:09)
[2020-06-30 06:14] LABS: Hemoglobin 10.1 g/dL (14.0-18.0); Mean Corpuscular HGB CONC 30.9 g/dL (32.0-36.0); Mean Corpuscular Hemoglobin 29.3 pg (27.0-31.0); Mean Corpuscular Volume 94.8 fL (78.0-98.0); Mean Platelet Volume 7.9 fL (7.4-10.4); Platelet Count 244 thou/uL (130-400); RBC Distribution Width 15.3 % (11.5-14.5); Red Blood Cell (RBC) Count 3.45 mill/uL (4.70-6.10); White Blood Cell (WBC) Count 17.5 thou/uL (4.8-10.8)
[2020-06-30 06:16] LABS: INR-International Normal Ratio 3.6; Prothrombin Time 37.1 sec (12.0-14.7)
[2020-06-30 06:32] LABS: Band 7 % (5-11); Lymphocytes 8 % (21-51); MDiff Complete? YES; Monocytes 7 % (0-10); Myelocyte 3 % (0-0); Neutrophil 75 % (42-75)
[2020-06-30 06:34] LABS: Anion Gap 10 mmol/L (10-20); BUN (Urea Nitrogen) 31 mg/dL (8.4-25.7); Calc. Creatinine Clearance 80 mL/min (70-130); Calcium 7.9 mg/dL (7.8-10.44); Carbon Dioxide 37 mmol/L (23-31); Chloride 97 mmol/L (98-107); Glucose 130 mg/dL (83-110); Potassium 3.3 mmol/L (3.5-5.1); Sodium 141 mmol/L (136-145)
[2020-06-30] MEDS: Mometasone 200 MCG/Formoterol 5 MCG 120 PUFF INHALER INH SCH ×2 (07:46→20:02)
[2020-06-30] MEDS: Gabapentin 100 MG CAP PO SCH ×2 (09:00→15:00)
[2020-06-30] MEDS: Transdermal Patch Removal TOP SCH (09:54)
[2020-06-30] MEDS: Torsemide 20 MG TAB PO SCH (09:54)
[2020-06-30] MEDS: Atorvastatin Calcium 20 MG TAB PO SCH (09:55)
[2020-06-30] MEDS: Potassium Chloride 10 MEQ TAB PO SCH (09:55)
[2020-06-30] MEDS: Loratadine 10 MG TAB PO SCH (09:55)
[2020-06-30] MEDS: Carvedilol 25 MG TAB PO SCH ×2 (09:55→20:19)
[2020-06-30] MEDS: Amiodarone 200 MG TAB PO SCH (09:55)
[2020-06-30] MEDS: Cholecalciferol 1,000 UNITS (25 MCG) TAB PO SCH (09:56)
[2020-06-30] MEDS: Allopurinol 300 MG TAB PO SCH (09:56)
[2020-06-30] MEDS: Colchicine 0.6 MG TAB PO SCH ×2 (09:57→20:23)
[2020-06-30] MEDS: Multivit, Therapeutic 1 TAB PO SCH (09:57)
[2020-06-30] MEDS: Morphine ER 15 MG TAB PO SCH ×2 (09:58→20:20)
[2020-06-30] MEDS: Pantoprazole 40 MG VIAL IVP SCH (09:58)
[2020-06-30] MEDS ORDERED: Potassium Chloride 20 MEQ TAB PO SCH (13:15)
[2020-06-30] MEDS: Lidocaine 5% Patch TD SCH (17:59)
[2020-06-30] MEDS: Gabapentin 300 MG CAP PO SCH (20:20)
[2020-06-30] MEDS: traZODone HCl 50 MG TAB PO SCH (20:21)
[2020-06-30] MEDS: Insulin Glargine 30 UNITS in Pre-Filled Syringe 1 EACH SC SCH (20:31)
[2020-07-01 04:56] LABS: Hemoglobin 9.8 g/dL (14.0-18.0); Mean Corpuscular HGB CONC 30.5 g/dL (32.0-36.0); Mean Corpuscular Hemoglobin 29.7 pg (27.0-31.0); Mean Corpuscular Volume 97.3 fL (78.0-98.0); Platelet Count 246 thou/uL (130-400); RBC Distribution Width 15.3 % (11.5-14.5); White Blood Cell (WBC) Count 17.2 thou/uL (4.8-10.8)
[2020-07-01 04:59] LABS: Anion Gap 11 mmol/L (10-20); BUN (Urea Nitrogen) 31 mg/dL (8.4-25.7); Calc. Creatinine Clearance 81 mL/min (70-130); Calcium 8.1 mg/dL (7.8-10.44); Carbon Dioxide 37 mmol/L (23-31); Chloride 95 mmol/L (98-107); Glucose 196 mg/dL (83-110); Potassium 3.9 mmol/L (3.5-5.1); Sodium 139 mmol/L (136-145)
[2020-07-01 06:05] LABS: Band 9 % (5-11); Eosinophils 1 % (0-10); Lymphocytes 6 % (21-51); MDiff Complete? YES; Monocytes 7 % (0-10); Neutrophil 77 % (42-75)
[2020-07-01] MEDS: CEFAZOLIN 2 GM in Premix Bag 1 BAG IVPB SCH ×3 (07:38→20:34)
[2020-07-01] MEDS: Levothyroxine Sodium 100 MCG TAB PO SCH (08:07)
[2020-07-01] MEDS: Mometasone 200 MCG/Formoterol 5 MCG 120 PUFF INHALER INH SCH ×2 (08:09→21:49)
[2020-07-01] MEDS: Allopurinol 300 MG TAB PO SCH (10:14)
[2020-07-01] MEDS: Atorvastatin Calcium 20 MG TAB PO SCH (10:14)
[2020-07-01] MEDS: Amiodarone 200 MG TAB PO SCH (10:15)
[2020-07-01] MEDS: Multivit, Therapeutic 1 TAB PO SCH (10:15)
[2020-07-01] MEDS: Cholecalciferol 1,000 UNITS (25 MCG) TAB PO SCH (10:15)
[2020-07-01] MEDS: Loratadine 10 MG TAB PO SCH (10:15)
[2020-07-01] MEDS: Pantoprazole 40 MG VIAL IVP SCH (10:16)
[2020-07-01] MEDS: Potassium Chloride 10 MEQ TAB PO SCH (10:16)
[2020-07-01] MEDS: Gabapentin 300 MG CAP PO SCH ×3 (10:16→21:39)
[2020-07-01] MEDS: Morphine ER 15 MG TAB PO SCH ×2 (10:17→21:39)
[2020-07-01] MEDS: Colchicine 0.6 MG TAB PO SCH ×2 (10:18→21:40)
[2020-07-01] MEDS: Torsemide 20 MG TAB PO SCH (10:18)
[2020-07-01] MEDS: Carvedilol 25 MG TAB PO SCH ×2 (10:21→21:39)
[2020-07-01] MEDS: Transdermal Patch Removal TOP SCH (10:37)
[2020-07-01] MEDS: Lidocaine 5% Patch TD SCH (20:35)
[2020-07-01] MEDS: traZODone HCl 50 MG TAB PO SCH (21:38)
[2020-07-01] MEDS: Insulin Glargine 30 UNITS in Pre-Filled Syringe 1 EACH SC SCH (21:41)
[2020-07-02] MEDS: CEFAZOLIN 2 GM in Premix Bag 1 BAG IVPB SCH ×3 (02:46→17:44)
[2020-07-02] MEDS: Dextrose 5% in Water 1,000 ML IV PRN (05:31)
[2020-07-02 05:57] LABS: #Eosinphils 0.3 thou/uL (0.0-0.7); #Lymphocytes 0.8 thou/uL (1.20-3.40); #Monocytes 1.3 thou/uL (0.11-0.59); #Neutrophils 13.8 thou/uL (1.40-6.50); %Basophils 0.1 % (0.0-1.0); %Eosinophils 1.7 % (0.0-10.0); %Lymphocytes 4.8 % (21.0-51.0); %Monocytes 7.9 % (0.0-10.0); %Neutrophils 85.5 % (42.0-75.0); Hemoglobin 9.6 g/dL (14.0-18.0); Mean Corpuscular HGB CONC 29.4 g/dL (32.0-36.0); Mean Corpuscular Volume 98.7 fL (78.0-98.0); Mean Platelet Volume 7.7 fL (7.4-10.4); Platelet Count 287 thou/uL (130-400); RBC Distribution Width 14.9 % (11.5-14.5); Red Blood Cell (RBC) Count 3.32 mill/uL (4.70-6.10); White Blood Cell (WBC) Count 16.1 thou/uL (4.8-10.8)
[2020-07-02] MEDS: Levothyroxine Sodium 100 MCG TAB PO SCH (06:03)
[2020-07-02] MEDS: Transdermal Patch Removal TOP SCH (06:03)
[2020-07-02] MEDS: Mometasone 200 MCG/Formoterol 5 MCG 120 PUFF INHALER INH SCH ×2 (07:43→19:27)
[2020-07-02] MEDS: Amiodarone 200 MG TAB PO SCH (09:13)
[2020-07-02] MEDS: Allopurinol 300 MG TAB PO SCH (09:13)
[2020-07-02] MEDS: Carvedilol 25 MG TAB PO SCH ×2 (09:13→20:29)
[2020-07-02] MEDS: Atorvastatin Calcium 20 MG TAB PO SCH (09:13)
[2020-07-02] MEDS: Gabapentin 300 MG CAP PO SCH (09:14)
[2020-07-02] MEDS: Morphine ER 15 MG TAB PO SCH ×2 (09:14→20:28)
[2020-07-02] MEDS: Loratadine 10 MG TAB PO SCH (09:14)
[2020-07-02] MEDS: Potassium Chloride 10 MEQ TAB PO SCH (09:14)
[2020-07-02] MEDS: Cholecalciferol 1,000 UNITS (25 MCG) TAB PO SCH (09:14)
[2020-07-02] MEDS: Pantoprazole 40 MG VIAL IVP SCH (09:14)
[2020-07-02] MEDS: Colchicine 0.6 MG TAB PO SCH ×2 (09:14→20:28)
[2020-07-02] MEDS: Multivit, Therapeutic 1 TAB PO SCH (09:14)
[2020-07-02] MEDS: Torsemide 20 MG TAB PO SCH (09:15)
[2020-07-02] MEDS ORDERED: Lidocaine 1% PF 5 ML VIAL ONE (09:59)
[2020-07-02] MEDS ORDERED: PROPOFOL 200 MG/20 ML VIAL ONE (09:59)
[2020-07-02] MEDS ORDERED: PHENYLEPHRINE-NS 100 MCG/ML 10 ML SYRINGE ONE (09:59)
[2020-07-02] MEDS ORDERED: Fentanyl 100 MCG/2 ML VIAL ONE ×2 (13:42)
[2020-07-02] MEDS ORDERED: Famotidine 20 MG TAB ONE (13:42)
[2020-07-02] MEDS ORDERED: Famotidine/PF 20 mg/2ml Vial ONE (13:43)
[2020-07-02] MEDS ORDERED: Neomycin-Polymyxin 1 ML AMP ONE (13:53)
[2020-07-02] MEDS: Gabapentin 100 MG CAP PO SCH ×2 (17:43→20:30)
[2020-07-02] MEDS: Dronabinol 2.5 MG CAP PO SCH (17:43)
[2020-07-02] MEDS: Lidocaine 5% Patch TD SCH (17:45)
[2020-07-02] MEDS: traZODone HCl 50 MG TAB PO SCH (20:29)
[2020-07-02] MEDS: HYDROcodone/Acetaminophen 10/325 mg Tablet PO PRN (20:29)
[2020-07-02] MEDS: Insulin Glargine 30 UNITS in Pre-Filled Syringe 1 EACH SC SCH (20:30)
[2020-07-03] MEDS: HYDROcodone/Acetaminophen 10/325 mg Tablet PO PRN ×3 (01:04→21:52)
[2020-07-03] MEDS: CEFAZOLIN 2 GM in Premix Bag 1 BAG IVPB SCH ×3 (01:07→17:10)
[2020-07-03] MEDS: Transdermal Patch Removal TOP SCH (05:10)
[2020-07-03] MEDS: Levothyroxine Sodium 100 MCG TAB PO SCH (05:47)
[2020-07-03 06:19] LABS: #Eosinphils 0.2 thou/uL (0.0-0.7); #Lymphocytes 0.7 thou/uL (1.20-3.40); #Monocytes 0.9 thou/uL (0.11-0.59); #Neutrophils 15.2 thou/uL (1.40-6.50); %Basophils 0.1 % (0.0-1.0); %Eosinophils 1.1 % (0.0-10.0); %Lymphocytes 4.3 % (21.0-51.0); %Monocytes 5.5 % (0.0-10.0); Hemoglobin 9.2 g/dL (14.0-18.0); Mean Corpuscular HGB CONC 30.1 g/dL (32.0-36.0); Mean Corpuscular Hemoglobin 29.1 pg (27.0-31.0); Mean Corpuscular Volume 96.5 fL (78.0-98.0); Mean Platelet Volume 8.1 fL (7.4-10.4); Platelet Count 256 thou/uL (130-400); RBC Distribution Width 14.7 % (11.5-14.5); Red Blood Cell (RBC) Count 3.17 mill/uL (4.70-6.10); White Blood Cell (WBC) Count 17.1 thou/uL (4.8-10.8)
[2020-07-03] MEDS: Mometasone 200 MCG/Formoterol 5 MCG 120 PUFF INHALER INH SCH ×2 (07:53→19:44)
[2020-07-03] MEDS: Amiodarone 200 MG TAB PO SCH (08:38)
[2020-07-03] MEDS: Colchicine 0.6 MG TAB PO SCH ×2 (08:38→20:19)
[2020-07-03] MEDS: Dronabinol 2.5 MG CAP PO SCH ×2 (08:38→16:19)
[2020-07-03] MEDS: Torsemide 20 MG TAB PO SCH (08:39)
[2020-07-03] MEDS: Potassium Chloride 10 MEQ TAB PO SCH (08:39)
[2020-07-03] MEDS: Loratadine 10 MG TAB PO SCH (08:39)
[2020-07-03] MEDS: Cholecalciferol 1,000 UNITS (25 MCG) TAB PO SCH (08:39)
[2020-07-03] MEDS: Gabapentin 100 MG CAP PO SCH ×3 (08:39→20:15)
[2020-07-03] MEDS: Morphine ER 15 MG TAB PO SCH (08:40)
[2020-07-03] MEDS: Atorvastatin Calcium 20 MG TAB PO SCH (08:40)
[2020-07-03] MEDS: Multivit, Therapeutic 1 TAB PO SCH (08:40)
[2020-07-03] MEDS: Allopurinol 300 MG TAB PO SCH (08:40)
[2020-07-03] MEDS: Pantoprazole 40 MG VIAL IVP SCH (08:41)
[2020-07-03] MEDS: Carvedilol 25 MG TAB PO SCH ×2 (08:42→20:25)
[2020-07-03] MEDS: Ondansetron PF 4 MG/2 ML Vial IVP PRN (16:23)
[2020-07-03] MEDS: Lidocaine 5% Patch TD SCH (18:45)
[2020-07-03] MEDS: traZODone HCl 50 MG TAB PO SCH (20:15)
[2020-07-03] MEDS: Enoxaparin Sodium 40 MG/0.4 ML SYRINGE SC SCH (20:18)
[2020-07-03] MEDS: Insulin Glargine 30 UNITS in Pre-Filled Syringe 1 EACH SC SCH (20:26)
[2020-07-03] MEDS ORDERED: Enoxaparin Sodium 80 MG/0.8 ML SYRINGE SC SCH (21:00)
[2020-07-04] MEDS: HYDROcodone/Acetaminophen 10/325 mg Tablet PO PRN ×3 (02:11→19:23)
[2020-07-04] MEDS: CEFAZOLIN 2 GM in Premix Bag 1 BAG IVPB SCH ×3 (02:11→17:07)
[2020-07-04 04:51] LABS: #Eosinphils 0.2 thou/uL (0.0-0.7); #Lymphocytes 0.8 thou/uL (1.20-3.40); %Basophils 0.3 % (0.0-1.0); %Eosinophils 0.9 % (0.0-10.0); %Lymphocytes 4.8 % (21.0-51.0); %Monocytes 6.3 % (0.0-10.0); %Neutrophils 87.7 % (42.0-75.0); Hemoglobin 9.8 g/dL (14.0-18.0); Mean Corpuscular HGB CONC 32.3 g/dL (32.0-36.0); Mean Corpuscular Hemoglobin 31.7 pg (27.0-31.0); Mean Corpuscular Volume 97.9 fL (78.0-98.0); Mean Platelet Volume 7.9 fL (7.4-10.4); Platelet Count 266 thou/uL (130-400); Red Blood Cell (RBC) Count 3.09 mill/uL (4.70-6.10); White Blood Cell (WBC) Count 15.9 thou/uL (4.8-10.8)
[2020-07-04 05:18] LABS: BUN (Urea Nitrogen) 32 mg/dL (8.4-25.7); Calc. Creatinine Clearance 81 mL/min (70-130); Calcium 7.9 mg/dL (7.8-10.44); Glucose 79 mg/dL (83-110)
[2020-07-04 05:27] LABS: Anion Gap 17 mmol/L (10-20); Carbon Dioxide 36 mmol/L (23-31); Chloride 90 mmol/L (98-107); Potassium 3.4 mmol/L (3.5-5.1); Sodium 140 mmol/L (136-145)
[2020-07-04] MEDS: Levothyroxine Sodium 100 MCG TAB PO SCH (06:11)
[2020-07-04] MEDS: Transdermal Patch Removal TOP SCH (06:12)
[2020-07-04] MEDS: Mometasone 200 MCG/Formoterol 5 MCG 120 PUFF INHALER INH SCH ×2 (08:11→19:39)
[2020-07-04] MEDS: Multivit, Therapeutic 1 TAB PO SCH (08:19)
[2020-07-04] MEDS: Senokot S 8.6-50 MG TAB PO PRN (08:19)
[2020-07-04] MEDS: Torsemide 20 MG TAB PO SCH (08:19)
[2020-07-04] MEDS: Cholecalciferol 1,000 UNITS (25 MCG) TAB PO SCH (08:19)
[2020-07-04] MEDS: Aspirin Chewable 81 MG TAB PO SCH (08:19)
[2020-07-04] MEDS: Potassium Chloride 10 MEQ TAB PO SCH (08:19)
[2020-07-04] MEDS: Colchicine 0.6 MG TAB PO SCH ×2 (08:19→20:14)
[2020-07-04] MEDS: Allopurinol 300 MG TAB PO SCH (08:20)
[2020-07-04] MEDS: Atorvastatin Calcium 20 MG TAB PO SCH (08:20)
[2020-07-04] MEDS: Loratadine 10 MG TAB PO SCH (08:20)
[2020-07-04] MEDS: Amiodarone 200 MG TAB PO SCH (08:21)
[2020-07-04] MEDS: Carvedilol 25 MG TAB PO SCH ×2 (08:21→20:15)
[2020-07-04] MEDS: Enoxaparin Sodium 40 MG/0.4 ML SYRINGE SC SCH ×2 (08:22→20:14)
[2020-07-04] MEDS: Polyethylene Glycol 3350 17 GM Packet PO PRN (08:22)
[2020-07-04] MEDS: Pantoprazole 40 MG VIAL IVP SCH (08:22)
[2020-07-04] MEDS: Gabapentin 100 MG CAP PO SCH ×3 (08:22→20:14)
[2020-07-04] MEDS: Dronabinol 2.5 MG CAP PO SCH ×2 (08:52→09:27)
[2020-07-04] MEDS ORDERED: Dronabinol 2.5 MG CAP PO SCH (16:30)
[2020-07-04] MEDS: Lidocaine 5% Patch TD SCH (17:07)
[2020-07-04] MEDS: Ondansetron PF 4 MG/2 ML Vial IVP PRN (20:13)
[2020-07-04] MEDS: traZODone HCl 50 MG TAB PO SCH (20:15)
[2020-07-04] MEDS: Insulin Glargine 30 UNITS in Pre-Filled Syringe 1 EACH SC SCH (20:20)
[2020-07-05] MEDS: HYDROcodone/Acetaminophen 10/325 mg Tablet PO PRN ×3 (01:22→22:18)
[2020-07-05] MEDS: CEFAZOLIN 2 GM in Premix Bag 1 BAG IVPB SCH ×3 (01:23→18:33)
[2020-07-05] MEDS: Transdermal Patch Removal TOP SCH (05:51)
[2020-07-05] MEDS: Levothyroxine Sodium 100 MCG TAB PO SCH (05:51)
[2020-07-05] MEDS: Mometasone 200 MCG/Formoterol 5 MCG 120 PUFF INHALER INH SCH ×2 (07:39→18:24)
[2020-07-05] MEDS: Gabapentin 100 MG CAP PO SCH ×3 (09:11→20:37)
[2020-07-05] MEDS: Potassium Chloride 10 MEQ TAB PO SCH (09:14)
[2020-07-05] MEDS: Torsemide 20 MG TAB PO SCH (09:14)
[2020-07-05] MEDS: Megestrol Acetate 40 MG TAB PO SCH (09:15)
[2020-07-05] MEDS: Cholecalciferol 1,000 UNITS (25 MCG) TAB PO SCH (09:15)
[2020-07-05] MEDS: Colchicine 0.6 MG TAB PO SCH ×2 (09:15→20:37)
[2020-07-05] MEDS: Loratadine 10 MG TAB PO SCH (09:15)
[2020-07-05] MEDS: Multivit, Therapeutic 1 TAB PO SCH (09:15)
[2020-07-05] MEDS: Atorvastatin Calcium 20 MG TAB PO SCH (09:15)
[2020-07-05] MEDS: Aspirin Chewable 81 MG TAB PO SCH (09:15)
[2020-07-05] MEDS: Carvedilol 25 MG TAB PO SCH ×2 (09:16→20:36)
[2020-07-05] MEDS: Enoxaparin Sodium 40 MG/0.4 ML SYRINGE SC SCH ×2 (09:16→20:38)
[2020-07-05] MEDS: Pantoprazole 40 MG VIAL IVP SCH (09:16)
[2020-07-05] MEDS: Allopurinol 300 MG TAB PO SCH (09:17)
[2020-07-05] MEDS: Amiodarone 200 MG TAB PO SCH (09:17)
[2020-07-05] MEDS: Acetaminophen 325 MG TAB PO PRN ×2 (09:56→14:42)
[2020-07-05] MEDS: traMADol HCl 50 MG TAB PO PRN (18:35)
[2020-07-05] MEDS: Lidocaine 5% Patch TD SCH (18:38)
[2020-07-05] MEDS: traZODone HCl 50 MG TAB PO SCH (20:36)
[2020-07-05] MEDS: Ondansetron PF 4 MG/2 ML Vial IVP PRN (20:40)
[2020-07-06] MEDS: Acetaminophen 325 MG TAB PO PRN ×3 (00:19→21:10)
[2020-07-06] MEDS: traMADol HCl 50 MG TAB PO PRN ×2 (00:19→21:11)
[2020-07-06] MEDS: CEFAZOLIN 2 GM in Premix Bag 1 BAG IVPB SCH ×3 (02:25→18:21)
[2020-07-06] MEDS: Levothyroxine Sodium 100 MCG TAB PO SCH (06:06)
[2020-07-06] MEDS: Transdermal Patch Removal TOP SCH (06:06)
[2020-07-06] MEDS: Amiodarone 200 MG TAB PO SCH (08:09)
[2020-07-06] MEDS: Aspirin Chewable 81 MG TAB PO SCH (08:09)
[2020-07-06] MEDS: Loratadine 10 MG TAB PO SCH (08:09)
[2020-07-06] MEDS: Potassium Chloride 10 MEQ TAB PO SCH (08:10)
[2020-07-06] MEDS: Gabapentin 100 MG CAP PO SCH ×3 (08:11→20:23)
[2020-07-06] MEDS: Carvedilol 25 MG TAB PO SCH ×2 (08:11→20:23)
[2020-07-06] MEDS: Atorvastatin Calcium 20 MG TAB PO SCH (08:12)
[2020-07-06] MEDS: Multivit, Therapeutic 1 TAB PO SCH (08:12)
[2020-07-06] MEDS: Allopurinol 300 MG TAB PO SCH (08:12)
[2020-07-06] MEDS: Enoxaparin Sodium 40 MG/0.4 ML SYRINGE SC SCH ×2 (08:14→20:24)
[2020-07-06] MEDS: Colchicine 0.6 MG TAB PO SCH ×2 (08:14→20:23)
[2020-07-06] MEDS: Torsemide 20 MG TAB PO SCH (08:14)
[2020-07-06] MEDS: Cholecalciferol 1,000 UNITS (25 MCG) TAB PO SCH (08:14)
[2020-07-06] MEDS: Megestrol Acetate 40 MG TAB PO SCH (08:14)
[2020-07-06] MEDS: Pantoprazole 40 MG VIAL IVP SCH (08:14)
[2020-07-06] MEDS: Mometasone 200 MCG/Formoterol 5 MCG 120 PUFF INHALER INH SCH ×2 (08:30→18:22)
[2020-07-06] MEDS ORDERED: ALPRAZolam 0.25 MG TAB PO PRN (09:00)
[2020-07-06] MEDS: Lidocaine 5% Patch TD SCH (18:20)
[2020-07-06 19:33] VITALS: TEMP 97.8
[2020-07-06] MEDS: traZODone HCl 50 MG TAB PO SCH (20:23)
[2020-07-07] MEDS: CEFAZOLIN 2 GM in Premix Bag 1 BAG IVPB SCH ×2 (02:07→08:58)
[2020-07-07] MEDS: Ondansetron PF 4 MG/2 ML Vial IVP PRN (02:40)
[2020-07-07] MEDS: HYDROcodone/Acetaminophen 10/325 mg Tablet PO PRN (02:40)
[2020-07-07] MEDS: Levothyroxine Sodium 100 MCG TAB PO SCH (05:34)
[2020-07-07] MEDS: Transdermal Patch Removal TOP SCH (05:35)
[2020-07-07] MEDS: traMADol HCl 50 MG TAB PO PRN ×2 (06:32→15:12)
[2020-07-07] MEDS: Acetaminophen 325 MG TAB PO PRN ×2 (06:33→15:11)
[2020-07-07 07:48] VITALS: BP 124/59
[2020-07-07] MEDS: Mometasone 200 MCG/Formoterol 5 MCG 120 PUFF INHALER INH SCH (08:11)
[2020-07-07] MEDS: Megestrol Acetate 40 MG TAB PO SCH (08:50)
[2020-07-07] MEDS: Cholecalciferol 1,000 UNITS (25 MCG) TAB PO SCH (08:50)
[2020-07-07] MEDS: Colchicine 0.6 MG TAB PO SCH (08:51)
[2020-07-07] MEDS: Aspirin Chewable 81 MG TAB PO SCH (08:51)
[2020-07-07] MEDS: Amiodarone 200 MG TAB PO SCH (08:51)
[2020-07-07] MEDS: Multivit, Therapeutic 1 TAB PO SCH (08:52)
[2020-07-07] MEDS: Loratadine 10 MG TAB PO SCH (08:52)
[2020-07-07] MEDS: Carvedilol 25 MG TAB PO SCH (08:52)
[2020-07-07] MEDS: Potassium Chloride 10 MEQ TAB PO SCH (08:52)
[2020-07-07] MEDS: Allopurinol 300 MG TAB PO SCH (08:53)
[2020-07-07] MEDS: Enoxaparin Sodium 40 MG/0.4 ML SYRINGE SC SCH (08:54)
[2020-07-07] MEDS: Atorvastatin Calcium 20 MG TAB PO SCH (08:55)
[2020-07-07] MEDS: Gabapentin 100 MG CAP PO SCH ×2 (08:55→15:11)
[2020-07-07] MEDS: Pantoprazole 40 MG VIAL IVP SCH (08:56)
[2020-07-07] MEDS: Torsemide 20 MG TAB PO SCH (08:57)
== END 2020-07-07 15:40 | DRG 853 ==
LOC: ERS 00:25 → ERHOLD 02:24 → ONC 04:06 → OBSVTOIN 08:04 → ONC 21:53
PROVIDERS: ADMIT Internal Medicine; ATTEND Internal Medicine
PROC: 30233N1 Transfusion of Nonautologous Red Blood Cells into Peripheral Vein, Percutaneous Approach (ICD-10-PCS; 2020-06-24)
PROC: 0S9D3ZZ Drainage of Left Knee Joint, Percutaneous Approach (ICD-10-PCS; 2020-06-25)
PROC: 0S9D0ZZ Drainage of Left Knee Joint, Open Approach (ICD-10-PCS; principal; 2020-06-26)
PROC: 02HV33Z Insertion of Infusion Device into Superior Vena Cava, Percutaneous Approach (ICD-10-PCS; 2020-06-29)
PROC: B548ZZA Ultrasonography of Superior Vena Cava, Guidance (ICD-10-PCS; 2020-06-29)
PROC: 0JPV3WZ Removal of Totally Implantable Vascular Access Device from Upper Extremity Subcutaneous Tissue and Fascia, Percutaneous Approach (ICD-10-PCS; 2020-06-29)
PROC: 0S9D0ZZ Drainage of Left Knee Joint, Open Approach (ICD-10-PCS; 2020-07-02)
DX: A41.01 Sepsis due to Methicillin susceptible Staphylococcus aureus (principal); G93.41 Metabolic encephalopathy; M00.062 Staphylococcal arthritis, left knee; D62 Acute posthemorrhagic anemia; C25.9 Malignant neoplasm of pancreas, unspecified; I48.20 Chronic atrial fibrillation, unspecified; D68.9 Coagulation defect, unspecified; E87.1 Hypo-osmolality and hyponatremia; D64.81 Anemia due to antineoplastic chemotherapy; Z20.822 Contact with and (suspected) exposure to COVID-19; Z23 Encounter for immunization; T45.1X5A Adverse effect of antineoplastic and immunosuppressive drugs, initial encounter; E03.9 Hypothyroidism, unspecified; M25.462 Effusion, left knee; I12.9 Hypertensive chronic kidney disease with stage 1 through stage 4 chronic kidney disease, or unspecified chronic kidney disease; E11.22 Type 2 diabetes mellitus with diabetic chronic kidney disease; E66.9 Obesity, unspecified; J44.9 Chronic obstructive pulmonary disease, unspecified; D72.829 Elevated white blood cell count, unspecified; M10.062 Idiopathic gout, left knee; F41.9 Anxiety disorder, unspecified; G89.3 Neoplasm related pain (acute) (chronic); I48.0 Paroxysmal atrial fibrillation; B95.61 Methicillin susceptible Staphylococcus aureus infection as the cause of diseases classified elsewhere; N18.30 Chronic kidney disease, stage 3 unspecified; E87.6 Hypokalemia; R63.0 Anorexia; Z88.0 Allergy status to penicillin; Z79.01 Long term (current) use of anticoagulants; Z79.899 Other long term (current) drug therapy; Z79.4 Long term (current) use of insulin; Z79.890 Hormone replacement therapy; Z90.49 Acquired absence of other specified parts of digestive tract; Z95.0 Presence of cardiac pacemaker; Z79.82 Long term (current) use of aspirin; Z98.890 Other specified postprocedural states; Z79.51 Long term (current) use of inhaled steroids; Z68.30 Body mass index [BMI] 30.0-30.9, adult
CPT/HCPCS: 36415; 36416; 36430; 36569; 51702; 70450; 80048; 80053; 80202; 81001; 82248; 82607; 82728; 82746; 82945; 83615; 83880; 84100; 84157; 84439; 84443; 84484; 84550; 85025; 85060; 85610; 85730; 86140; 86850; 86900; 86901; 87040; 87070; 87077; 87086; 87149; 87186; 87205; 87635; 89051; 89060; 90471; 90732; 93005; 93306; C1751; C9113; G0009; G0378; J0690; J0696; J1642; J1644; J1650; J1815; J2060; J2405; J2704; J2765; J3010; J3370; J3490; P9016; Q0167; S0020; S0028; S0179; U0003; U0005